=== PATIENT | male | born 1955 | race Caucasian/White ===

== ENCOUNTER 2016-12-16 12:48 | Emergency (ER) | payer MEDICAID ==
--- NOTE | 2016-12-16 13:29 | ED Physician Chart ---
Chief Complaint/HPI - Patient Information Date Seen:: 12/16/16 Time Seen:: 13:00 Chief Complaint:: Slight increase in tremor since this morning. History of Present Illness:: Pt came to ER by private auto for the above reason after he has been doing a lot of walking outside under hot weather. Pt has h/o Parkinson's Disease and has been compliant with his usual medical regimen. Pt also has diabetes mellitus but has not been monitoring his glucose at home. Pt states that he has been compliant with his diabetic medical therapy but not with his diabetic diet. Pt has ? low grade fever today. Pt denies polyuria. No dysuria, urgency or frequency. No cough. No chest pain or discomfort. Pt denies use of any antipyretic or analgesic today. Allergies:: Allergies Allergy/AdvReac Type Severity Reaction Status Date / Time No Known Allergies Allergy Verified 09/23/15 16:27 Vitals:: Vital Signs - 8 hr 12/16/16 12:58 Temp 97.3 F HR 110 RR 16 BP 148/102 O2 Sat % 98 Historian:: Patient Family MD/PCP:: Dr. Ruff LMP:: N/A Review:: Nurse's Note Reviewed Review of Systems - Review of Systems General/Constitutional: Fever (? low grade fever.), No chills, No weight loss, No weakness, No edema, No loss of appetite Skin: No skin lesions, No rash, No bruising Head: Headache (transient frontal headache.), No light-headedness Eyes: No loss of vision, No pain, No diplopia ENT: No earache, No nasal drainage, No sore throat, No tinnitus Neck: No neck pain, No swelling, No thyromegaly, No stiffness, No mass noted Cardio Vascular: No chest pain, No palpitations, No edema Pulmonary: No SOB, No cough, No wheezing GI: No nausea, No vomiting, No diarrhea, No pain G/U: No dysuria, No frequency, No hematuria Musculoskeletal: No bone or joint pain, No back pain, No muscle pain Endocrine: No polyuria Psychiatric: No prior psych history Hematopoietic: No bruising, No lymphadenopathy Allergic/Immuno: No urticaria, No angioedema Neurological: No syncope, No focal symptoms, No weakness, No paresthesia, No dizziness, No confusion Past Medical History - Past Medical History Past Medical History: DM, Other (DJD of C-spine and L-spine) Family History: Heart disease (mother), Diabetes Melitus (father), Cancer ( father) Social History: Smoker (1/2 ppd. Pt has been informed about health risks associated with chronic tobacco use and has been advised to quit. Pt has been encouraged to enroll in a smoking cessation program. Pt acknowledges understanding.), No Alcohol, No Drug Use, , Employed, Other (lives with his brother.) Employment:: [employer]. Surgical History: other (L knee surgery about a year ago.) Psychiatricy History: None Medication: Reviewed Family Medical History - Family Member Mother Ethnicity: Non- Living Status: Hx Family Cancer: Yes (Breast) Hx Family Coronary Artery Disease: No Hx Family Congestive Heart Failure: No Hx Family Hypertension: No Hx Family Stroke: No Hx Family Seizures: No Hx Family Dementia: No Hx Family HIV: No Hx Family Hepatitis: No Father Ethnicity: Non- Living Status: Hx Family Cancer: No Hx Family Coronary Artery Disease: No Hx Family Congestive Heart Failure: No Hx Family Hypertension: No Hx Family Stroke: No Hx Family Diabetes: No Hx Family Seizures: No Hx Family Dementia: No Hx Family AIDS: No Hx Family HIV: No Hx Family COPD: No Hx Family Hepatitis: No Hx Family Psychiatric Problems: No Hx Family Tuberculosis: No Physical Exam - Physical Examination General/Constitutional: Awake, Well-developed, well-nourished, Alert, No distress, GCS 15, Non-toxic appearing Other Gen/Cons comments:: Breathes comfortably, speaks clearly, and interacts normally. Head: Atraumatic Eyes: Lids, conjuctiva normal, PERRL, EOMI Skin: Nl inspection, No rash, No skin lesions, No ecchymosis, No lymphadenopathy ENMT: External ears, nose nl, TM canals nl, Nasal exam nl, Lips, teeth, gums nl , Oropharynx nl Other ENMT comments:: Mucous membrane is slightly dry. Neck: Nontender, Full ROM w/o pain, No JVD, No nuchal rigidity, No stridor Respiratory: Nl effort/Exclusion, Clear to Auscultation, No Wheeze/Rhonchi/Rales Cardio Vascular: RRR, No murmur, gallop, rubs GI: No tenderness/rebounding/guarding, No organomegaly, Normal BS's, Nondistended Other GI comments:: Abdomen is soft. : No CVA tenderness Extremities: No tenderness or effusion, Full ROM, normal strength in all extremities, No edema, Normal digits & nails Neuro/Psych: Alert/oriented (oriented x 3), DTR's symmetric, Normal sensory exam , Normal motor strength, Judgement/insight normal, Mood normal, Normal gait, No focal deficits Other Neuro/Psych comments:: CN II to XII are gross intact. Cerebellar exam (F to N, PETER): normal. No focal findings. Labs/Radiology/EKG Results - Lab Results Results: Laboratory Tests 12/16/16 13:16 POC Glucose 308 H Laboratory Tests 12/16/16 12/16/16 12/16/16 13:16 13:48 13:48 WBC 9.0 RBC 4.58 Hgb 13.6 Hct 40.5 MCV 88.4 MCH 29.7 MCHC Differential 33.6 RDW 14.4 Plt Count 281 MPV 8.5 Neutrophils % 72.5 Lymphocytes % 17.2 L Monocytes % 7.7 Eosinophils % 2.0 Basophils % 0.6 PT 9.6 INR 0.92 PTT (Actin FS) 23.5 L Sodium Potassium Chloride Carbon Dioxide Anion Gap BUN Creatinine Est GFR ( Amer) Est GFR (Non-Af Amer) BUN/Creatinine Ratio Glucose POC Glucose 308 H Calcium Total Bilirubin AST ALT Alkaline Phosphatase Creatine Kinase Troponin I Total Protein Albumin Globulin Albumin/Globulin Ratio Serum Ketones 12/16/16 12/16/16 13:48 13:48 WBC RBC Hgb Hct MCV MCH MCHC Differential RDW Plt Count MPV Neutrophils % Lymphocytes % Monocytes % Eosinophils % Basophils % PT INR PTT (Actin FS) Sodium 132 L Potassium 3.6 Chloride 106 Carbon Dioxide 20.7 L Anion Gap 8.9 BUN 20 Creatinine 1.0 Est GFR ( Amer) > 60.0 Est GFR (Non-Af Amer) > 60.0 BUN/Creatinine Ratio 20.0 Glucose 303 H POC Glucose Calcium 9.0 Total Bilirubin 0.3 AST 6 L ALT 8 Alkaline Phosphatase 82 Creatine Kinase 45 Troponin I 0.03 Total Protein 6.9 Albumin 4.2 Globulin 2.7 Albumin/Globulin Ratio 1.6 Serum Ketones NEGATIVE - Radiology Results Results: PCXR: Based on my interpretation, NAD. Official report is pending. - EKG Interpretations EKG Time:: 13:48 Rate & Rhythm: NSR with VR 93 Comments:: Cannot r/o old IMI, age undetermined. NSSTT changes. No acute ischemic changes. ED Septic Shock - . Is Septic Shock (SBP<90, OR Lactate>4 mmol\L) present?: No - <6hrs of presentation: Vital Signs: Vital Signs - 8 hr 12/16/16 12:58 Temp 97.3 F HR 110 RR 16 BP 148/102 O2 Sat % 98 Reassessment (Disposition) - Reassessment Reassessment:: 1517 Pt has been repeatedly evaluated. Pt feels better. EKG, CXR and lab findings have been reviewed with pt. Will continue to hydrate pt. Pt requests pain medication for his chronic left knee pain now. Toradol 30 mg IV is to be given. 1645 Pt feels well after IV hydration. He has been back to his baseline physical status without bodily pain or discomfort, and he has been ambulating without assistance without difficulty. Repeat Accuchek is 232. EKG, CXR, and lab findings have been reviewed with pt. Pt requests to go home now and does not want further observation/management in hospital. Aftercare instructions have been given. Reassessment Condition:: Improved - Diagnosis Diagnosis:: Dehydration because of exposure to hot weather, stable and resolved. Diabetes mellitus, suboptimally controlled due to noncompliance with diabetic diet, improved and stable. - Aftercare/Follow up Instructions Aftercare/Follow-Up Instructions:: Refer to Discharge Instructions Notes:: Continue present care. Pt has been reminded that he needs to monitoring his glucose at home. Diabetic diet instructions have been given to pt per nursing staff also. Stay indoor when outside temperature is high. Increase oral hydration. F/U with PCP Dr. Ruff in one day for recheck with repeat lab study: CMP. Return to ER immediately if condition worsens or if any further questions/ problems. Medication Prescribed:: None - Patient Disposition Discharge/Transfer:: Home Time:: 16:50 Condition at Disposition:: Stable, Improved ED Discharge Plan - Patient Disposition Instructions: Type 2 Diabetes Mellitus, Adult, Diabetes, Eating Away From Home , Diets for Diabetes, Food Labeling, Dehydration, Adult, Diabetes Meal Planning Guide
[2016-12-16 13:59] LABS: RED CELL DISTRIBUTION WIDTH 14.4 % (11.5-20.0)
[2016-12-16 14:05] LABS: % BASOPHILS 0.6 % (0.0-2.0); % LYMPHOCYTES 17.2 % (20.0-50.0); % MONOCYTES 7.7 % (2.0-10.0); % NEUTROPHILS 72.5 % (40.0-80.0); HEMATOCRIT 40.5 % (39.0-49.0); HEMOGLOBIN 13.6 gm/dL (13.2-17.3); MEAN CELL VOLUME 88.4 fl (80-99); MEAN CORPUSCULAR HEMOGLOBIN 29.7 pg (26.0-30.0); MEAN CORPUSCULAR HGB CONC 33.6 pg (28.0-36.0); MEAN PLATELET VOLUME 8.5 fl; NEUTROPHILE ABSOLUTE 6.5 Th/cmm (1.8-8.0); PLATELET COUNT 281 Th/cmm (150-400); RED BLOOD COUNT 4.58 Mil/cmm (4.30-5.70)
[2016-12-16] MEDS ORDERED: Sodium Chloride 0.9% 1,000 ML IV ONE (14:15)
[2016-12-16 14:17] LABS: ALB/GLOB RATIO 1.6 (1.0-1.8); ALKALINE PHOSPHATASE 82 U/L (34-104); ANION GAP 8.9 (7.0-16.0); BILIRUBIN,TOTAL 0.3 mg/dL (0.3-1.0); BUN - UREA NITROGEN 20 mg/dL (7-25); CARBON DIOXIDE 20.7 mEq/L (21.0-31.0); CHLORIDE 106 mEq/L (98-107); GLUCOSE 303 mg/dL (70-105); POTASSIUM SERUM 3.6 mEq/L (3.5-5.1); SGOT 6 U/L (13-39); SGPT/ALT 8 U/L (7-52); SODIUM SERUM 132 mEq/L (136-145)
[2016-12-16 14:22] LABS: INR 0.92 (0.5-1.4); PROTHROMBIN TIME (TEST) 9.6 SECONDS (9.5-11.5)
--- NOTE | 2016-12-17 08:09 | Diagnostic Imaging Report ---
Portable chest x-ray Time: 1356 hours History: Low-grade fever Allowing for portable technique the heart size is normal. No focal pulmonary parenchymal processes. No hilar or mediastinal abnormalities. Impression: No acute abnormalities.
== END 2016-12-16 16:51 | disposition home or self-care (01) ==
LOC: ER 12:48
DX: E11.9 Type 2 diabetes mellitus without complications (principal); F17.200 Nicotine dependence, unspecified, uncomplicated; G20 Parkinson's disease
CPT/HCPCS: 99285; 96361; 96374; 93005; 71010; 84484; 36415; 36416 ×2; 82948 ×2; 85025; 85610; 82550; 83036; 82010; 80053; J1885; J7030

== ENCOUNTER 2017-05-13 15:08 | Inpatient (IN) | payer MEDICAID ==
[2017-05-13] MEDS ORDERED: Aspirin 325 mg EC PO ONE (15:22)
--- NOTE | 2017-05-13 15:34 | ED Physician Chart ---
ED Chief Complaint/HPI - Patient Information Date Seen:: 05/13/17 Time Seen:: 15:15 Chief Complaint:: Chest Pain History of Present Illness:: onset since 10am today of intermittentk, exertional chest pain, dyspnea, diaphoresis; no LOC, H/As, S/T, neck pain, cough, Abd. Pain, A/N/V/D/C, fever, chills, or urinary s/s Allergies:: Allergies Allergy/AdvReac Type Severity Reaction Status Date / Time No Known Allergies Allergy Verified 09/23/15 16:27 Vitals:: Vital Signs - 8 hr 05/13/17 15:19 Temp 98.7 F HR 112 RR 18 BP 93/59 O2 Sat % 97 Historian:: Patient Review:: Nurse's Note Reviewed ED Review of Systems - Review of Systems General/Constitutional: No fever, No chills, No weight loss, No weakness, No diaphoresis, No edema, No loss of appetite Skin: No skin lesions, No rash, No bruising Head: No headache, No light-headedness Eyes: No loss of vision, No pain, No diplopia ENT: No earache, No nasal drainage, No sore throat, No tinnitus Neck: No neck pain, No swelling, No thyromegaly, No stiffness, No mass noted Cardio Vascular: Chest pain, No palpitations, No PND, No orthopnea, No edema Pulmonary: SOB, No cough, No sputum, No wheezing GI: No nausea, No vomiting, No diarrhea, No pain, No melena, No hematochezia, No constipation, No hematemesis G/U: No dysuria, No frequency, No hematuria, No nacturia Musculoskeletal: No bone or joint pain, No back pain, No muscle pain Endocrine: No polyuria, No polydipsia Psychiatric: No prior psych history, No depression, No anxiety, No suicidal ideation, No homicidal ideation, No auditory hallucination, No visual hallucination Hematopoietic: No bruising, No lymphadenopathy Allergic/Immuno: No urticaria, No angioedema Neurological: No syncope, No focal symptoms, No weakness, No paresthesia, No headache, No seizure, No dizziness, No confusion, No vertigo ED Past Medical History - Past Medical History Obtainable: Yes Past Medical History: HTN, DM, Other (Parkinson's Disease) Family History: Diabetes Melitus, HTN Social History: Non Smoker, No Alcohol, No Drug Use, Surgical History: other (Rotator Cuff Surgery) Psychiatricy History: None Medication: Reviewed Family Medical History - Family Member Mother History Unknown: Yes Ethnicity: Non- Living Status: Hx Family Cancer: Yes (Breast) Hx Family Coronary Artery Disease: No Hx Family Congestive Heart Failure: No Hx Family Hypertension: No Hx Family Stroke: No Hx Family Seizures: No Hx Family Dementia: No Hx Family HIV: No Hx Family Hepatitis: No Father History Unknown: Yes Ethnicity: Non- Living Status: Hx Family Cancer: No Hx Family Coronary Artery Disease: No Hx Family Congestive Heart Failure: No Hx Family Hypertension: No Hx Family Stroke: No Hx Family Diabetes: No Hx Family Seizures: No Hx Family Dementia: No Hx Family AIDS: No Hx Family HIV: No Hx Family COPD: No Hx Family Hepatitis: No Hx Family Psychiatric Problems: No Hx Family Tuberculosis: No ED Physical Exam - Physical Examination General/Constitutional: Awake, Well-developed, well-nourished, Alert, No distress, GCS 15, Non-toxic appearing, Ambulatory Head: Atraumatic Eyes: Lids, conjuctiva normal, PERRL, EOMI Skin: Nl inspection, No rash, No skin lesions, No ecchymosis, Well hydrated, No lymphadenopathy ENMT: External ears, nose nl, TM canals nl, Nasal exam nl, Lips, teeth, gums nl , Oropharynx nl, Tonsils nl Neck: Nontender, Full ROM w/o pain, No JVD, No nuchal rigidity, No bruit, No mass, No stridor Respiratory: Nl effort/Exclusion Other Respiratory comments:: Lungs: + Rales, Rhonchi, and Wheezes Cardio Vascular: RRR, No murmur, gallop, rubs, NL S1 S2, Carotid/Femoral/Distal pulses equal bilaterally GI: No tenderness/rebounding/guarding, No organomegaly, No hernia, Normal BS's, Nondistended, No mass/bruits, No McBurney tenderness : No CVA tenderness Extremities: No tenderness or effusion, Full ROM, normal strength in all extremities, No edema, Normal digits & nails Neuro/Psych: Alert/oriented, DTR's symmetric, Normal sensory exam, Normal motor strength, Judgement/insight normal, Mood normal, Normal gait, No focal deficits Misc: Normal back, No paraspinal tenderness ED Labs/Radiology/EKG Results - Lab Results Comments:: WBC: 11.5; Na+: 135; Glucose: 438 - Radiology Results Comments:: CXR: Patchy LLL Infiltrate - EKG Interpretations EKG Time:: 15:31 Rate & Rhythm: 105; ST/Atrial Flutter Comments:: old IWMI; non-specific st-t changes ED Septic Shock - . Is Septic Shock (SBP<90, OR Lactate>4 mmol\L) present?: No - <6hrs of presentation: Vital Signs: Vital Signs - 8 hr 05/13/17 15:19 Temp 98.7 F HR 112 RR 18 BP 93/59 O2 Sat % 97 ED Reassessment (Disposition) - Reassessment Reassessment Condition:: Improved - Diagnosis Diagnosis:: Dx: PNA; Chest Pain; Angina Pectoris; Atrial Flutter; Sepsis; Leukocytosis; Hyperglycemia; Hyponatremia; Dehydration; Uncontrolled Diabetes Mellitus; COPD; Cardiac Arrythmias - Aftercare/Follow up Instructions Aftercare/Follow-Up Instructions:: Counseled pt regarding lab results/diagnosis & need follow up, Counseled pt & family regarding lab results/diagnosis & need follow up - Patient Disposition Discharge/Transfer:: Acute Care w/in this hosp Accepting Physician:: Dr. Colin Time Called:: 1700 Time Responded:: 17:00 Admitted to:: Telemetry Spoke to:: Dr. colin Admitting Medical Physician:: Dr. Colin Condition at Disposition:: Stable, Improved
[2017-05-13 15:36] LABS: % EOSINOPHILS 1.3 % (0.0-5.0); % LYMPHOCYTES 9.8 % (20.0-50.0); % NEUTROPHILS 84.9 % (40.0-80.0); EOSINOPHILE ABSOLUTE 0.1 Th/cmm (0.1-0.4); HEMATOCRIT 38.6 % (41.0-60); HEMOGLOBIN 13.1 gm/dL (12-16); LYMPHOCYTE ABSOLUTE 1.1 Th/cmm (1.5-3.0); MEAN CELL VOLUME 89.2 fl (80-99); MEAN CORPUSCULAR HEMOGLOBIN 30.3 pg (26.0-30.0); MEAN CORPUSCULAR HGB CONC 33.9 pg (28.0-36.0); MEAN PLATELET VOLUME 8.8 fl; MONOCYTE ABSOLUTE 0.5 Th/cmm (0.3-1.0); NEUTROPHILE ABSOLUTE 9.8 Th/cmm (1.8-8.0); RED BLOOD COUNT 4.33 Mil/cmm (4.30-5.70); RED CELL DISTRIBUTION WIDTH 14.2 % (11.5-20.0)
[2017-05-13 15:37] LABS: WHITE BLOOD COUNT 11.5 Th/cmm (4.8-10.8)
[2017-05-13 15:38] LABS: PLATELET COUNT 358 Th/cmm (150-400)
[2017-05-13] MEDS ORDERED: Aspirin 81mg Chewable Tab ONE (15:40)
[2017-05-13] MEDS ORDERED: Aspirin 81mg Chewable Tab PO STA (15:43)
[2017-05-13] MEDS ORDERED: Morphine Sulfate 2 mg/mL 1mL Syr IV STA (16:04)
[2017-05-13 16:11] LABS: ALB/GLOB RATIO 1.6 (1.0-1.8); ALBUMIN 4.2 gm/dL (4.2-5.5); ALKALINE PHOSPHATASE 97 U/L (34-104); ANION GAP 15.4 (7.0-16.0); BILIRUBIN,TOTAL 0.3 mg/dL (0.3-1.0); BUN - UREA NITROGEN 22 mg/dL (7-25); CARBON DIOXIDE 18.2 mEq/L (21.0-31.0); CHLORIDE 106 mEq/L (98-107); CHOLESTEROL 184 mg/dL (<200); CREATININE - SERUM 1.1 mg/dL (0.7-1.3); CREATININE KINASE 45 U/L (30-223); GFR AFRICAN-AMERICAN > 60.0 ml/min (>90); GFR NON AFRICAN-AMERICAN > 60.0 ml/min; GLUCOSE 438 mg/dL (70-105); HDL -HIGH DENSITY LIPOPROTEIN 46 mg/dL (23-92); POTASSIUM SERUM 4.6 mEq/L (3.5-5.1); SGOT 6 U/L (13-39); SGPT/ALT 6 U/L (7-52); SODIUM SERUM 135 mEq/L (136-145); TOTAL PROTEIN,SERUM 6.8 gm/dL (6.0-8.3); TRIGLYCERIDES 280 mg/dL (<150)
[2017-05-13] MEDS ORDERED: Morphine Sulfate 2 mg/mL 1mL Syr ONE (16:27)
[2017-05-13] MEDS ORDERED: Albuterol/Ipratropium Neb 3 ML AERS HHN ONE ×2 (16:37→17:03)
[2017-05-13 16:38] LABS: INR 0.9 (0.5-1.4); PROTHROMBIN TIME (TEST) 9.3 SECONDS (9.5-11.5)
[2017-05-13] MEDS ORDERED: INSULIN HUMAN REGULAR 100 UNITS/ML UNIT SUBQ ONE (17:01)
[2017-05-13] MEDS ORDERED: Levofloxacin 500mg/100mL 500 MG/100 ML BAG IV ONE ×2 (17:02→17:36)
[2017-05-13] MEDS ORDERED: INSULIN HUMAN REGULAR 100 UNITS/ML UNIT ONE (17:10)
[2017-05-13] MEDS ORDERED: Sodium Chloride 0.9% 1,000 ML IV ONE (17:19)
[2017-05-13 17:39] LABS: URINE MICROSCOPIC INDICATED? YES; URINE SOURCE MIDSTREAM
[2017-05-13 17:41] LABS: URINE BILIRUBIN NEGATIVE (NEGATIVE); URINE BLOOD NEGATIVE (NEGATIVE); URINE GLUCOSE (UA) >=1000 mg/dL (NEGATIVE); URINE KETONE NEGATIVE (NEGATIVE); URINE LEUKOCYTE ESTERASE NEGATIVE (NEGATIVE); URINE NITRATE NEGATIVE (NEGATIVE); URINE PROTEIN NEGATIVE (NEGATIVE); URINE UROBILINOGEN 0.2 E.U./dL (0.2 - 1.0)
[2017-05-13 17:55] LABS: URINE BACTERIA NONE SEEN /hpf (NONE SEEN); URINE CLARITY CLEAR (CLEAR); URINE COLOR YELLOW; URINE EPITHELIAL CELLS NONE SEEN /lpf (FEW); URINE RBC NONE SEEN /hpf (0-5); URINE WBC NONE SEEN /hpf (0-5)
[2017-05-13] MEDS ORDERED: INSULIN ASPART, RECOMBINANT 100 UNITS/ML SUBQ ONE (20:15)
[2017-05-13] MEDS ORDERED: Azithromycin 500 MG in Sodium Chloride 0.9% 250 ML IV SCH (21:30)
[2017-05-13] MEDS: Morphine Sulfate 2 mg/mL 1mL Syr IVP PRN (22:36)
[2017-05-13] MEDS: Enoxaparin 80 mg/0.8 mL 0.8mL Syr SUBQ SCH (23:33)
[2017-05-14] MEDS: NITROGLYCERIN OINT 2% 1 INCH PACKET TP SCH ×4 (00:45→17:46)
[2017-05-14] MEDS: Morphine Sulfate 2 mg/mL 1mL Syr IVP PRN ×4 (02:57→20:30)
[2017-05-14 04:24] VITALS: BP 137/90
[2017-05-14 05:48] LABS: % BASOPHILS 0.5 % (0.0-2.0); % EOSINOPHILS 2.6 % (0.0-5.0); % LYMPHOCYTES 21.3 % (20.0-50.0); % MONOCYTES 8.1 % (2.0-10.0); % NEUTROPHILS 67.5 % (40.0-80.0); BASOPHILE ABSOLUTE 0.1 Th/cumm (0-0.2); EOSINOPHILE ABSOLUTE 0.3 Th/cmm (0.1-0.4); HEMATOCRIT 38.9 % (41.0-60); HEMOGLOBIN 12.8 gm/dL (12-16); LYMPHOCYTE ABSOLUTE 2.2 Th/cmm (1.5-3.0); MEAN CELL VOLUME 88.9 fl (80-99); MEAN CORPUSCULAR HEMOGLOBIN 29.4 pg (26.0-30.0); MEAN PLATELET VOLUME 8.4 fl; MONOCYTE ABSOLUTE 0.8 Th/cmm (0.3-1.0); NEUTROPHILE ABSOLUTE 6.9 Th/cmm (1.8-8.0); PLATELET COUNT 313 Th/cmm (150-400); RED BLOOD COUNT 4.37 Mil/cmm (4.30-5.70); RED CELL DISTRIBUTION WIDTH 14.3 % (11.5-20.0); WHITE BLOOD COUNT 10.3 Th/cmm (4.8-10.8)
[2017-05-14 06:03] LABS: ALB/GLOB RATIO 1.6 (1.0-1.8); ALBUMIN 4.2 gm/dL (4.2-5.5); ALKALINE PHOSPHATASE 76 U/L (34-104); ANION GAP 11.8 (7.0-16.0); BILIRUBIN,TOTAL 0.3 mg/dL (0.3-1.0); BUN - UREA NITROGEN 16 mg/dL (7-25); CALCIUM SERUM 9.4 mg/dL (8.6-10.3); CARBON DIOXIDE 20.5 mEq/L (21.0-31.0); CHLORIDE 107 mEq/L (98-107); GFR AFRICAN-AMERICAN > 60.0 ml/min (>90); GFR NON AFRICAN-AMERICAN > 60.0 ml/min; MAGNESIUM 1.6 mg/dL (1.9-2.7); POTASSIUM SERUM 4.3 mEq/L (3.5-5.1); SGOT 7 U/L (13-39); SGPT/ALT 9 U/L (7-52); SODIUM SERUM 135 mEq/L (136-145); TOTAL PROTEIN,SERUM 6.9 gm/dL (6.0-8.3)
[2017-05-14 06:10] LABS: GLUCOSE 219 mg/dL (70-105)
--- NOTE | 2017-05-14 08:20 | Diagnostic Imaging Report ---
CHEST X-RAY: AP view INDICATION: pain COMPARISON: 12/16/2016 FINDINGS: Chronic lung changes are noted with no focal consolidation or pleural effusions. Heart size is borderline prominent. Degenerative changes of the spine are noted. IMPRESSION: Chronic interstitial lung changes with no focal consolidation identified.
[2017-05-14] MEDS: Aspirin 81mg Chewable Tab PO SCH (09:11)
[2017-05-14] MEDS: Enoxaparin 80 mg/0.8 mL 0.8mL Syr SUBQ SCH ×2 (09:11→20:31)
[2017-05-14] MEDS: Atorvastatin Calcium 10 MG TAB PO SCH (09:11)
[2017-05-14] MEDS: Pantoprazole 40 mg EC Tab PO SCH (09:26)
--- NOTE | 2017-05-14 11:43 | History & Physical ---
ADMIT DATE: 05/14/2017 DATE OF EVALUATION: 05/14/2017. CHIEF COMPLAINT: Chest pain. HISTORY OF PRESENT ILLNESS: A 61-year-old male with history of type 2 diabetes, hypertension, hyperlipidemia, history of Parkinson disease, has a longstanding history of smoking, brought himself to the Emergency Room for evaluation of chest pain on and off for last 4-5 days. According to him, when he gets stressed out, he gets chest pain, which has been described in the left precordial area associated with shortness of breath and palpitation and diaphoresis, according to him sometimes pain goes to the lower part of the abdomen. The patient was evaluated by Emergency Room MD. After being evaluated, the patient is advised to be admitted to the hospital for further treatment. PAST MEDICAL HISTORY: Remarkable for; 1. Diabetes. 2. Hypertension. 3. Hyperlipidemia. 4. DJD. 5. Parkinson's disease. MEDICATIONS: Medication list has been reviewed and reconciled appropriately. ALLERGIES: The patient is not allergic to any medication. SOCIAL HISTORY: The patient lives with his brother in [facility]. The patient has a history of smoking cigarette. No alcohol or drug use. FAMILY HISTORY: Remarkable for diabetes. REVIEW OF SYSTEMS: The patient currently denies any headache, blurred vision, double vision, dysphagia, odynophagia, runny nose, stuffy nose, fever, or chills. The patient denies any abdominal pain. Denies any nausea, vomiting, hematemesis, hematuria, hematochezia, or melena. No seizure or syncopal episode. PHYSICAL EXAMINATION: GENERAL: The patient is alert, awake, and oriented, lying in the bed. VITAL SIGNS: Temperature 97.7, pulse is 69, respiratory rate is 18, and blood pressure 140/84. HEENT: Normocephalic and atraumatic. Extraocular muscles are intact. Tongue was pink and coated. Poor dentition noted. NECK: Supple. No JVD. No hepatojugular reflex. No lymphadenopathy, thyromegaly, or carotid bruit. HEART: Both heart sounds are regular. No S3, no S4, no murmur. CHEST: Lung equal in expansion with expiratory wheezing. ABDOMEN: Soft. No guarding, no rigidity. Liver and spleen not palpable. No palpable mass. EXTREMITIES: No edema, no cyanosis or clubbing. Peripheral pulses are +2. No calf tenderness noted. NEUROLOGICAL: ____ resting tremors noted with some degree of spasticity. AVAILABLE DIAGNOSTIC DATA: Performed in the Emergency Room. Laboratory data has been reviewed. CLINICAL IMPRESSION: 1. Acute coronary syndrome. 2. Chronic bronchitis. 3. Diabetes. 4. Hypertension. 5. Hyperlipidemia. 6. Parkinson's disease. 7. Degenerative joint disease. 8. Fall risk. PLAN: 1. Admit this patient to telemetry unit, provide oxygen. 2. Aspirin. 3. Nitrates. 4. Beta fiona. 5. Wtj-nadaizwdw-niuflv heparin. 6. Cardiology consultation. 7. Statins. 8. Obtain 3 sets of cardiac enzymes and EKG. 9. Symptoms management. 10. Diabetes management. 11. Appropriate home medicine reconciliation. 12. Nebulizer treatment. 13. ID consult will be requested because I was told the patient had pneumonia. 14. Fall precaution. 15. General nursing care. 16. Care plan reviewed and discussed with staff. JOB# [id number]
[2017-05-14] MEDS: Albuterol/Ipratropium Neb 3 ML AERS HHN SCH ×2 (13:52→20:28)
[2017-05-14] MEDS: INSULIN ASPART SLIDING SCALE 100 UNITS/ML UNIT SUBQ SCH ×2 (16:33→20:33)
[2017-05-14] MEDS ORDERED: Hydrocodone/APAP 5mg/325mg Tab PO PRN (23:39)
[2017-05-15] MEDS: Albuterol/Ipratropium Neb 3 ML AERS HHN SCH ×2 (00:38→07:49)
[2017-05-15] MEDS: NITROGLYCERIN OINT 2% 1 INCH PACKET TP SCH ×2 (00:51→05:58)
--- NOTE | 2017-05-15 03:48 | Consultation ---
DATE OF CONSULTATION: 05/14/2017 REFERRING PHYSICIAN: Dr. Han Colin. REASON FOR CONSULTATION: Pneumonia. HISTORY OF PRESENT ILLNESS: The patient is a 61-year-old male with a past medical history of diabetes mellitus type 2, hypertension, hyperlipidemia, DJD, Parkinson disease, brought to the ER for left precordial chest pain. The patient has taken multiple doses of nitroglycerin. As there was no relief, he came to the ER for further evaluation and management. On initial evaluation, the patient's temperature was 98.7 degrees Fahrenheit and WBC count 11,558. The patient was suspected to have UTI. The patient's chest x-ray suspected of pneumonia, so ID consult was called for further antibiotic management and the patient had received Zithromax. PAST MEDICAL HISTORY: Includes diabetes mellitus type 2, hypertension, hyperlipidemia, DJD, and Parkinson disease. MEDICATIONS: As per medication reconciliation sheet. ALLERGIES: NKDA. SOCIAL HISTORY: The patient lives with his brother in [facility]. He also carries a history of smoking. No alcohol use. FAMILY HISTORY: Unremarkable. REVIEW OF SYSTEMS: The patient is unreliable. GENERAL: The patient denies any fever or chills. He denies any dizziness. HEENT: The patient denies any diplopia, photophobia, sore throat, or condition. RESPIRATORY: The patient denies any cough or shortness of breath. CARDIOVASCULAR: No chest pain or palpitation. GASTROINTESTINAL: The patient denies any nausea, vomiting, diarrhea, or constipation. GENITOURINARY: No dysuria. Thank you, Dr. Colin for involving me in taking care of this patient. JOB# [id number]
--- NOTE | 2017-05-15 04:55 | Consultation ---
DATE OF CONSULTATION: 05/14/2017 INFECTIOUS DISEASE CONSULTATION NOTE REFERRING PHYSICIAN: Dr. Han Colin. REASON FOR CONSULTATION: Pneumonia. HISTORY OF PRESENT ILLNESS: The patient is a 61-year-old with a past medical history of diabetes mellitus type 2, hypertension, hyperlipidemia, DJD, Parkinson disease, brought in from care facility for precordial chest pain, not relieved by nitroglycerin alone. The patient was suspected to have pneumonia and Zithromax given. Chest x-ray did not show any evidence of any pneumonia. PAST MEDICAL HISTORY: Includes diabetes mellitus, hypertension, hyperlipidemia, DJD, Parkinson disease. MEDICATIONS: As per medication reconciliation sheet. Antibiotic thomas, the patient is receiving Zithromax. ALLERGIES: NKDA. SOCIAL HISTORY: The patient lives with his brother and granddaughter. Has history of smoking cigarettes. Denies alcohol use. FAMILY HISTORY: Diabetes mellitus type 2. REVIEW OF SYSTEMS: GENERAL: The patient denies any fever or chills. HEENT: No diplopia, no photophobia, no sore throat. Complains of precordial chest pain. GASTROINTESTINAL: No nausea, no vomiting, no diarrhea, no constipation. GENITOURINARY: No dysuria. NEUROLOGIC: No headache, no dizziness. No focal weakness. ____ urine culture is sent, result is pending. PHYSICAL EXAMINATION: VITAL SIGNS: Current vital signs show temperature is 98.7, pulse 94, respirations 19, blood pressure 111/76. GENERAL: The patient is comfortable, lying in the bed. HEENT: Head is normocephalic, atraumatic. Oral cavity moist, pink tongue. NECK: Supple. No JVD. Trachea in midline. CHEST: Bilateral breath sounds. No crackles or wheezing. CARDIOVASCULAR: S1, S2 within normal limits. Regular rhythm. No murmur, no gallop. ABDOMEN: Soft, nontender, nondistended. Bowel sounds present. EXTREMITIES: No cyanosis, no clubbing, no edema. NEUROLOGIC: Alert, awake. LABORATORY DATA: Current labs shows WBC count 10,300, it was 11,500 on presentation; hemoglobin 12.8; hematocrit 38.9; platelets are 313,000; neutrophils 67.5%. Sodium 135, potassium 4.3, chloride 107, bicarb is 20.5, BUN is 16, creatinine is 1 and LFTs are reviewed. IMAGING: Chest x-ray showed chronic changes, no acute disease. IMPRESSION: 1. Bronchitis. 2. Chest pain, rule out acute coronary syndrome. 3. Diabetes mellitus type 2. 4. Hypertension. 5. Hyperlipidemia. 6. Parkinson disease. 7. Degenerative joint disease. 8. Risk of fall. RECOMMENDATION: Give symptomatic treatment. JOB# [id number]
[2017-05-15 05:19] LABS: % BASOPHILS 0.4 % (0.0-2.0); % EOSINOPHILS 2.3 % (0.0-5.0); % MONOCYTES 6.9 % (2.0-10.0); % NEUTROPHILS 69.4 % (40.0-80.0); EOSINOPHILE ABSOLUTE 0.2 Th/cmm (0.1-0.4); HEMATOCRIT 38.9 % (41.0-60); HEMOGLOBIN 12.9 gm/dL (12-16); LYMPHOCYTE ABSOLUTE 2.1 Th/cmm (1.5-3.0); MEAN CORPUSCULAR HEMOGLOBIN 29.2 pg (26.0-30.0); MEAN CORPUSCULAR HGB CONC 33.2 pg (28.0-36.0); MEAN PLATELET VOLUME 8.2 fl; MONOCYTE ABSOLUTE 0.7 Th/cmm (0.3-1.0); NEUTROPHILE ABSOLUTE 7.1 Th/cmm (1.8-8.0); PLATELET COUNT 330 Th/cmm (150-400); RED BLOOD COUNT 4.42 Mil/cmm (4.30-5.70); RED CELL DISTRIBUTION WIDTH 14.3 % (11.5-20.0); WHITE BLOOD COUNT 10.1 Th/cmm (4.8-10.8)
[2017-05-15 05:34] LABS: ALB/GLOB RATIO 1.6 (1.0-1.8); ALBUMIN 4.4 gm/dL (4.2-5.5); ALKALINE PHOSPHATASE 73 U/L (34-104); BILIRUBIN,TOTAL 0.4 mg/dL (0.3-1.0); BUN - UREA NITROGEN 24 mg/dL (7-25); CALCIUM SERUM 9.6 mg/dL (8.6-10.3); CARBON DIOXIDE 23.1 mEq/L (21.0-31.0); CHLORIDE 103 mEq/L (98-107); CREATININE - SERUM 1.1 mg/dL (0.7-1.3); GFR AFRICAN-AMERICAN > 60.0 ml/min (>90); GFR NON AFRICAN-AMERICAN > 60.0 ml/min; POTASSIUM SERUM 4.1 mEq/L (3.5-5.1); SGOT 8 U/L (13-39); SGPT/ALT 3 U/L (7-52); SODIUM SERUM 134 mEq/L (136-145); TOTAL PROTEIN,SERUM 7.1 gm/dL (6.0-8.3)
[2017-05-15 05:40] LABS: GLUCOSE 133 mg/dL (70-105)
--- NOTE | 2017-05-15 05:59 | Consultation ---
DATE OF CONSULTATION: 05/14/[address] Colin. HISTORY AND PHYSICAL: This 61-year-old male patient with a known history of diabetes, hypertension, hyperlipidemia, Parkinson's disease, came to the Emergency Room with chest pain radiating to the back, to the left shoulder, sharp in nature. No PND or orthopnea. No palpitation. PAST MEDICAL HISTORY: Hypertension, diabetes, hyperlipidemia, COPD, Parkinson's disease, and nicotine dependence. FAMILY HISTORY: Unremarkable. SOCIAL HISTORY: The patient has a history of smoking. No history of alcohol abuse. ALLERGIES: None. PHYSICAL EXAMINATION: VITAL SIGNS: Blood pressure 130/80, pulse 70, and respirations 20. HEAD: Normocephalic. No lumps or bumps. EYES: Pupils equal and reactive to light. Fundi show AV nicking, sclerae white, conjunctivae pink. NECK: Carotid 2+. Normal upstroke. JVD flat. Thyroid not palpable. Lymph nodes not palpable. CHEST: Shows increased AP diameter. No kyphosis or scoliosis. LUNGS: Bilateral bronchovesicular breath sounds. Occasional wheeze. No rales. HEART: PMI fifth intercostal space with lateral to midclavicular line. S1 and S2. No S3 and S4. ABDOMEN: Soft. Liver and spleen not palpable. No organomegaly. Bowel sounds active. NEUROLOGIC EXAMINATION: Unremarkable. EXTREMITIES: Peripheral pulses 2+. No pedal edema. CLINICAL IMPRESSION: Chest pain, rule out coronary artery disease; hypertension, diabetes mellitus type 2, hyperlipidemia, chronic obstructive pulmonary disease, nicotine dependence, and Parkinson's disease. PLAN: We will get echocardiogram, troponin level, and monitor the patient on telemetry bed. JOB# [id number]
[2017-05-15] MEDS: INSULIN ASPART SLIDING SCALE 100 UNITS/ML UNIT SUBQ SCH ×2 (07:25→12:07)
[2017-05-15] MEDS: Atorvastatin Calcium 10 MG TAB PO SCH (09:10)
[2017-05-15] MEDS: Aspirin 81mg Chewable Tab PO SCH (09:11)
[2017-05-15] MEDS: Pantoprazole 40 mg EC Tab PO SCH (09:11)
[2017-05-15 16:22] LABS: A1C % 10.1 % (4.0-6.0)
--- NOTE | 2017-05-15 17:29 | Cardiology ---
05/15/2017 PROCEDURE: Echocardiogram. The patient of Dr. Colin. M-MODE ECHOCARDIOGRAM: Mitral valve, anterior leaflet of mitral valve shows decreased excursion, EF velocity. Posterior leaflet of mitral valve shows decreased excursion. Left ventricular posterior wall shows increased thickness, decreased excursion. Interventricular septum shows increased thickness, decreased excursion, ejection fraction 25%. Left atrium normal. Aortic root shows normal dimension, normal excursion of aortic leaflets. CONCLUSION: Cardiomyopathy, ejection fraction 25%. 2D ECHO: Long axis view shows enlarged left ventricular cavity with decreased ejection fraction. Mitral valve shows decreased excursion. Left atrium normal. Aortic root shows normal dimension, normal excursion of aortic leaflets. Short axis view of mitral valve normal. Short axis view of aortic valve normal. Apical four chamber view shows enlarged left ventricular cavity with decreased ejection fraction. Left atrium normal, right ventricular cavity, right atrium normal, no pericardial effusion. CONCLUSION: Cardiomyopathy, ejection fraction 25%. Doppler study showed trace mitral regurgitation, trace tricuspid regurgitation. [facility]# [id number]
--- NOTE | 2017-05-16 13:08 | Discharge Summary ---
DATE OF DISCHARGE: 05/15/2017 DISCHARGE DIAGNOSES: 1. Atypical chest pain. 2. Asthmatic bronchitis with bronchospasm. 3. Diabetes mellitus. 4. Hypertension. 5. Hyperlipidemia. 6. Parkinson's disease. 7. Degenerative joint disease. 8. Fall risk. BRIEF STATEMENT FOR THE REASON FOR ADMISSION: A 61-year-old male with significant cardiovascular risk factor, presented to Emergency Room where the patient was evaluated and subsequently admitted to the hospital for further treatment. Please refer to my dictated H and P for further information. HOSPITAL COURSE: The patient was admitted to telemetry unit. Initial impression was acute coronary syndrome. So, the patient was given oxygen, aspirin, beta fiona, nitrates along with bvi-anwuswwso-lektvy heparin, statin was also given. Cardiology consultation requested. Three sets of cardiac enzymes and EKG were done, which were negative for acute myocardial infarction. The patient did have 2D echocardiogram, which did not reveal any wall motion abnormality. The patient did see Infectious Disease doctor since I was told that the patient has pneumonia. Blood cultures were done, which was unremarkable as well. A chest x-ray done in the Emergency Room was negative for any acute cardiopulmonary disease. The patient was treated with bronchitis with bronchospasm, where the patient significantly improved. I did have a discussion with the patient to have the patient must follow with isobutylene operator chief and have further cardiac workup done as an outpatient in the form of Cardiolite stress test since the Cardiolite stress test facility is not available at this hospital. The patient has agreed upon and the patient will follow up with primary care physician. The patient's case investigator from his health plan did call me and I advised that the patient will require home health visiting nurse for medication compliance, home safety as well, which will be arranged by his insurance. Based on that, the patient is discharged home today with naproxen to be taken for pain. The patient will take Zithromax 500 mg daily for 5 days along with Ventolin inhaler 2 puffs 4 times a day. The patient will be receiving another medication as the patient will be receiving at home except the patient will discontinue Lopid and keep simvastatin as prescribed and benazepril only once a day and add a prescription of Coreg 3.125 mg b.i.d. has been added. The patient will be seen by isobutylene operator chief in 1 week. If recurrent symptoms, the patient will go to Emergency Room. [facility]# [id number]
== END 2017-05-15 13:20 | disposition home health service (06) | DRG 720 ==
LOC: ER 15:08 → TELE 19:04
PROVIDERS: ADMIT Internal Medicine; ATTEND Internal Medicine
DX: A41.9 Sepsis, unspecified organism (principal); G20 Parkinson's disease; I24.9 Acute ischemic heart disease, unspecified; E11.65 Type 2 diabetes mellitus with hyperglycemia; E87.1 Hypo-osmolality and hyponatremia; I48.92 Unspecified atrial flutter; E86.0 Dehydration; I10 Essential (primary) hypertension; E78.5 Hyperlipidemia, unspecified; M19.90 Unspecified osteoarthritis, unspecified site; F17.210 Nicotine dependence, cigarettes, uncomplicated; I25.10 Atherosclerotic heart disease of native coronary artery without angina pectoris; J44.9 Chronic obstructive pulmonary disease, unspecified; R07.89 Other chest pain; J98.01 Acute bronchospasm; Z91.81 History of falling; Z83.3 Family history of diabetes mellitus; Z82.49 Family history of ischemic heart disease and other diseases of the circulatory system
CPT/HCPCS: 36415-UA; 71045-TC; 80053-TC; 80061-TC; 81001-TC; 82550-TC; 82948-90; 83036-90; 83605; 83735-TC; 83880-TC; 84484-TC; 85025-TC; 85610-TC; 93005; 94640; 94760; 96375; J0456; J1650; J1815; J1956; J2270; J7030; J7040; Z7610

== ENCOUNTER 2017-05-17 22:35 | Emergency (ER) | payer MEDICAID ==
[2017-05-17 23:35] LABS: EOSINOPHILE ABSOLUTE 0.2 Th/cmm (0.1-0.4); HEMATOCRIT 39.1 % (41.0-60); HEMOGLOBIN 13.2 gm/dL (12-16); LYMPHOCYTE ABSOLUTE 1.1 Th/cmm (1.5-3.0); MEAN CELL VOLUME 87.9 fl (80-99); MEAN CORPUSCULAR HEMOGLOBIN 29.6 pg (26.0-30.0); MEAN CORPUSCULAR HGB CONC 33.7 pg (28.0-36.0); MEAN PLATELET VOLUME 8.7 fl; MONOCYTE ABSOLUTE 1.1 Th/cmm (0.3-1.0); NEUTROPHILE ABSOLUTE 13.8 Th/cmm (1.8-8.0); PLATELET COUNT 360 Th/cmm (150-400); RED BLOOD COUNT 4.45 Mil/cmm (4.30-5.70); RED CELL DISTRIBUTION WIDTH 14.5 % (11.5-20.0)
--- NOTE | 2017-05-17 23:42 | ED Physician Chart ---
ED Chief Complaint/HPI - Patient Information Date Seen:: 05/17/17 Time Seen:: 23:00 Chief Complaint:: Right chest pain and RUQ abdominal pain History of Present Illness:: 61 yo male was discharged from hospital 2 days ago due to bronchitis and was found to have cardiomyopathy with EF 25%. He then developed right side chest pain for 1 day and was brought back to ER by his friend. At ER, he was found to have elevated WBC at 16.2 and rocephin was given. Subsequently, the patient complained RUQ abdominal pain. Allergies:: Allergies Allergy/AdvReac Type Severity Reaction Status Date / Time No Known Allergies Allergy Verified 05/17/17 22:47 Vitals:: Vital Signs - 8 hr 05/17/17 22:53 Temp 97.6 F HR 104 RR 20 BP 94/58 O2 Sat % 98 <Zackery Gordon - Last Filed: 05/18/17 07:30> - Patient Information Allergies:: Allergies Allergy/AdvReac Type Severity Reaction Status Date / Time No Known Allergies Allergy Verified 05/17/17 22:47 <Julio C Mccall - Last Filed: 05/18/17 10:09> ED Review of Systems - Review of Systems General/Constitutional: No fever Skin: No skin lesions Head: No headache Eyes: No loss of vision ENT: No earache Neck: No neck pain Cardio Vascular: Chest pain, No edema Pulmonary: No SOB GI: No nausea, No vomiting, Pain Musculoskeletal: No bone or joint pain <Zackery Gordon - Last Filed: 05/18/17 07:30> ED Past Medical History - Past Medical History Past Medical History: HTN, DM, CHF (cardiomyopathy), Dyslipidemia ( hyperlipidemia), Other (Parkinson's disease, DJD) Social History: Smoker, No Alcohol, No Drug Use <Zackery Gordon Last Filed: 05/18/17 07:30> Family Medical History - Family Member Mother History Unknown: Yes Ethnicity: Non- Living Status: Hx Family Cancer: Yes (Breast) Hx Family Coronary Artery Disease: No Hx Family Congestive Heart Failure: No Hx Family Hypertension: No Hx Family Stroke: No Hx Family Seizures: No Hx Family Dementia: No Hx Family HIV: No Hx Family Hepatitis: No Father History Unknown: Yes Ethnicity: Non- Living Status: Hx Family Cancer: No Hx Family Coronary Artery Disease: No Hx Family Congestive Heart Failure: No Hx Family Hypertension: Yes Hx Family Stroke: No Hx Family Diabetes: Yes Hx Family Seizures: No Hx Family Dementia: No Hx Family AIDS: No Hx Family HIV: No Hx Family COPD: No Hx Family Hepatitis: No Hx Family Psychiatric Problems: No Hx Family Tuberculosis: No <HeidiKrishna Filed: 05/18/17 07:30> ED Physical Exam - Physical Examination General/Constitutional: Awake, Alert Head: Atraumatic Eyes: PERRL Skin: No skin lesions ENMT: Nasal exam nl Neck: No nuchal rigidity Other Respiratory comments:: mild ronchi bilateral lungs Cardio Vascular: No murmur, gallop, rubs, NL S1 S2 Other GI comments:: RUQ tenderness Extremities: normal strength in all extremities Neuro/Psych: No focal deficits <Krishna Gordon Filed: 05/18/17 07:30> ED Labs/Radiology/EKG Results - Radiology Results Results: CXR: increased lung markings, no consolidation <Heidi Filed: 05/18/17 07:30> - Lab Results Results: Laboratory Tests 05/17/17 05/17/17 05/17/17 23:17 23:17 23:17 WBC 16.2 H D RBC 4.45 Hgb 13.2 Hct 39.1 L MCV 87.9 MCH 29.6 MCHC Differential 33.7 RDW 14.5 Plt Count 360 MPV 8.7 Neutrophils % REPRODUCTIVE HEALTHCARE ASSISTANT Band Neutrophils % 2 Lymphocytes % REPRODUCTIVE HEALTHCARE ASSISTANT Monocytes % REPRODUCTIVE HEALTHCARE ASSISTANT Eosinophils % REPRODUCTIVE HEALTHCARE ASSISTANT Basophils % REPRODUCTIVE HEALTHCARE ASSISTANT Neutrophils (Manual) 83 H Lymphocytes 8 L Monocytes 5 Eosinophils 2 Hypochromia 1+ Platelet Estimate ADEQUATE Microcytosis 1+ Sodium 134 L Potassium 4.2 Chloride 106 Carbon Dioxide 17.4 L Anion Gap 14.8 BUN 31 H Creatinine 1.5 H Est GFR ( Amer) > 60.0 Est GFR (Non-Af Amer) 50.4 BUN/Creatinine Ratio 20.7 Glucose 228 H Whole Bld Lactic Acid Calcium 9.3 Total Bilirubin 0.3 AST 6 L ALT < 3 L Alkaline Phosphatase 68 Troponin I 0.01 B-Natriuretic Peptide Total Protein 6.9 Albumin 4.0 L Globulin 2.9 Albumin/Globulin Ratio 1.4 Urine Source Urine Color Urine Clarity Urine pH Ur Specific Harris Urine Protein Urine Glucose (UA) Urine Ketones Urine Blood Urine Nitrate Urine Bilirubin Urine Urobilinogen Ur Leukocyte Esterase Urine RBC Urine WBC Ur Epithelial Cells Urine Bacteria 05/17/17 05/18/17 05/18/17 23:17 01:20 07:21 WBC 14.8 H RBC 4.19 L Hgb 12.3 Hct 37.0 L MCV 88.4 MCH 29.3 MCHC Differential 33.2 RDW 14.3 Plt Count 308 MPV 8.4 Neutrophils % 85.6 H Band Neutrophils % Lymphocytes % 6.1 L Monocytes % 7.1 Eosinophils % 1.0 Basophils % 0.2 Neutrophils (Manual) Lymphocytes Monocytes Eosinophils Hypochromia Platelet Estimate Microcytosis Sodium Potassium Chloride Carbon Dioxide Anion Gap BUN Creatinine Est GFR ( Amer) Est GFR (Non-Af Amer) BUN/Creatinine Ratio Glucose Whole Bld Lactic Acid 1.18 Calcium Total Bilirubin AST ALT Alkaline Phosphatase Troponin I B-Natriuretic Peptide Total Protein Albumin Globulin Albumin/Globulin Ratio Urine Source RANDOM Urine Color YELLOW Urine Clarity CLEAR Urine pH 5.5 Ur Specific Harris 1.010 Urine Protein NEGATIVE Urine Glucose (UA) >=1000 H Urine Ketones NEGATIVE Urine Blood NEGATIVE Urine Nitrate NEGATIVE Urine Bilirubin NEGATIVE Urine Urobilinogen 0.2 Ur Leukocyte Esterase NEGATIVE Urine RBC 2-5 H Urine WBC 0-2 Ur Epithelial Cells OCCASIONAL Urine Bacteria FEW 05/18/17 05/18/17 05/18/17 07:21 07:21 07:21 WBC RBC Hgb Hct MCV MCH MCHC Differential RDW Plt Count MPV Neutrophils % Band Neutrophils % Lymphocytes % Monocytes % Eosinophils % Basophils % Neutrophils (Manual) Lymphocytes Monocytes Eosinophils Hypochromia Platelet Estimate Microcytosis Sodium 136 Potassium 4.2 Chloride 108 H Carbon Dioxide 20.0 L Anion Gap 12.2 BUN 29 H Creatinine 1.3 Est GFR ( Amer) > 60.0 Est GFR (Non-Af Amer) 59.5 BUN/Creatinine Ratio 22.3 Glucose 217 H Whole Bld Lactic Acid 0.74 Calcium 9.2 Total Bilirubin AST ALT Alkaline Phosphatase Troponin I B-Natriuretic Peptide 136.0 H Total Protein Albumin Globulin Albumin/Globulin Ratio Urine Source Urine Color Urine Clarity Urine pH Ur Specific Harris Urine Protein Urine Glucose (UA) Urine Ketones Urine Blood Urine Nitrate Urine Bilirubin Urine Urobilinogen Ur Leukocyte Esterase Urine RBC Urine WBC Ur Epithelial Cells Urine Bacteria 05/18/17 07:21 WBC RBC Hgb Hct MCV MCH MCHC Differential RDW Plt Count MPV Neutrophils % Band Neutrophils % Lymphocytes % Monocytes % Eosinophils % Basophils % Neutrophils (Manual) Lymphocytes Monocytes Eosinophils Hypochromia Platelet Estimate Microcytosis Sodium Potassium Chloride Carbon Dioxide Anion Gap BUN Creatinine Est GFR ( Amer) Est GFR (Non-Af Amer) BUN/Creatinine Ratio Glucose Whole Bld Lactic Acid Calcium Total Bilirubin AST ALT Alkaline Phosphatase Troponin I 0.01 B-Natriuretic Peptide Total Protein Albumin Globulin Albumin/Globulin Ratio Urine Source Urine Color Urine Clarity Urine pH Ur Specific Harris Urine Protein Urine Glucose (UA) Urine Ketones Urine Blood Urine Nitrate Urine Bilirubin Urine Urobilinogen Ur Leukocyte Esterase Urine RBC Urine WBC Ur Epithelial Cells Urine Bacteria <Julio C Mccall - Last Filed: 05/18/17 10:09> ED Assessment - Assessment General Assessment: Bronchitis Leukocytosis Abdominal pain Assessment/Comments:: CBC, CMP, UA CXR Rocephin NS 1L IV bolus CT abdomen <Zackery Gordon - Last Filed: 05/18/17 07:30> - Assessment General Assessment: DR. CREWS WAS CALLED AND HE STATES THAT HE KNOWS THIS MAN AND HE IS HOMELESS TRYING TO GET INTO THE HOSPITAL. HE WANTS HIM TO BE SENT HOME ON ANTIBIOTICS AND FOLLOW OUT PATIENT. <Julio C Mccall - Last Filed: 05/18/17 10:09> ED Septic Shock - . Is Septic Shock (SBP<90, OR Lactate>4 mmol\L) present?: No - <6hrs of presentation: Vital Signs: Vital Signs - 8 hr 05/17/17 22:53 Temp 97.6 F HR 104 RR 20 BP 94/58 O2 Sat % 98 <Zackery Gordon - Last Filed: 05/18/17 07:30> - . Is Septic Shock (SBP<90, OR Lactate>4 mmol\L) present?: No <Julio C Mccall - Last Filed: 05/18/17 10:09> ED Reassessment (Disposition) - Reassessment Reassessment Condition:: Improved - Diagnosis Diagnosis:: ACUTE BRONCHITIS - Aftercare/Follow up Instructions Aftercare/Follow-Up Instructions:: Counseled pt regarding lab results/diagnosis & need follow up, Refer to Discharge Instructions, Counseled pt & family regarding lab results/diagnosis & need follow up - Patient Disposition Discharge/Transfer:: Home Condition at Disposition:: Improved <Julio C Mccall - Last Filed: 02/03/18 10:09> ED Discharge Plan <Zackery Gordon - Last Filed: 05/18/17 07:30> <Julio C Mccall - Last Filed: 05/18/17 10:09> - Patient Disposition Admit/Discharge/Transfer: PT DISCHARGED HOME Condition at Disposition: Improved
[2017-05-17 23:45] LABS: WHITE BLOOD COUNT 16.2 Th/cmm (4.8-10.8)
[2017-05-18] MEDS ORDERED: cefTRIAXone 1 GM in Sodium Chloride 0.9% 50 ML IV ONE (00:22)
[2017-05-18 00:31] LABS: ALB/GLOB RATIO 1.4 (1.0-1.8); ALKALINE PHOSPHATASE 68 U/L (34-104); ANION GAP 14.8 (7.0-16.0); BILIRUBIN,TOTAL 0.3 mg/dL (0.3-1.0); BUN - UREA NITROGEN 31 mg/dL (7-25); CALCIUM SERUM 9.3 mg/dL (8.6-10.3); CARBON DIOXIDE 17.4 mEq/L (21.0-31.0); CHLORIDE 106 mEq/L (98-107); CREATININE - SERUM 1.5 mg/dL (0.7-1.3); GFR AFRICAN-AMERICAN > 60.0 ml/min (>90); GFR NON AFRICAN-AMERICAN 50.4 ml/min; GLUCOSE 228 mg/dL (70-105); POTASSIUM SERUM 4.2 mEq/L (3.5-5.1); SGOT 6 U/L (13-39); SGPT/ALT < 3 U/L (7-52); SODIUM SERUM 134 mEq/L (136-145); TOTAL PROTEIN,SERUM 6.9 gm/dL (6.0-8.3)
[2017-05-18] MEDS ORDERED: Sodium Chloride 0.9% 1,000 ML IV ONE (00:48)
[2017-05-18 02:53] LABS: URINE MICROSCOPIC INDICATED? YES; URINE SOURCE RANDOM
[2017-05-18 02:58] LABS: URINE BILIRUBIN NEGATIVE (NEGATIVE); URINE BLOOD NEGATIVE (NEGATIVE); URINE GLUCOSE (UA) >=1000 mg/dL (NEGATIVE); URINE KETONE NEGATIVE (NEGATIVE); URINE LEUKOCYTE ESTERASE NEGATIVE (NEGATIVE); URINE NITRATE NEGATIVE (NEGATIVE); URINE PH 5.5 (4.6 - 8.0); URINE PROTEIN NEGATIVE (NEGATIVE); URINE UROBILINOGEN 0.2 E.U./dL (0.2 - 1.0)
[2017-05-18 03:00] LABS: URINE CLARITY CLEAR (CLEAR); URINE COLOR YELLOW
[2017-05-18 03:02] LABS: URINE BACTERIA FEW /hpf (NONE SEEN); URINE EPITHELIAL CELLS OCCASIONAL /lpf (FEW); URINE WBC 0-2 /hpf (0-5)
[2017-05-18 04:37] LABS: TOTAL CELLS COUNTED 100
[2017-05-18 04:38] LABS: NEUTROPHILS 83 % (40-80)
[2017-05-18 04:39] LABS: BAND NEUTROPHILE 2 % (0-10); EOSINOPHIL 2 % (0-5); HYPOCHROMIA 1+; LYMPHOCYTE 8 % (20-50); MONOCYTE 5 % (2-10); PLATELET ESTIMATE ADEQUATE (NORMAL)
[2017-05-18 07:28] LABS: HEMOGLOBIN 12.3 gm/dL (12-16); MEAN CELL VOLUME 88.4 fl (80-99); MEAN CORPUSCULAR HEMOGLOBIN 29.3 pg (26.0-30.0); MEAN CORPUSCULAR HGB CONC 33.2 pg (28.0-36.0); MEAN PLATELET VOLUME 8.4 fl; PLATELET COUNT 308 Th/cmm (150-400); RED BLOOD COUNT 4.19 Mil/cmm (4.30-5.70); RED CELL DISTRIBUTION WIDTH 14.3 % (11.5-20.0)
[2017-05-18 07:31] LABS: WHITE BLOOD COUNT 14.8 Th/cmm (4.8-10.8)
[2017-05-18 08:15] LABS: ANION GAP 12.2 (7.0-16.0); BUN - UREA NITROGEN 29 mg/dL (7-25); CALCIUM SERUM 9.2 mg/dL (8.6-10.3); CHLORIDE 108 mEq/L (98-107); CREATININE - SERUM 1.3 mg/dL (0.7-1.3); GFR AFRICAN-AMERICAN > 60.0 ml/min (>90); GFR NON AFRICAN-AMERICAN 59.5 ml/min; GLUCOSE 217 mg/dL (70-105); POTASSIUM SERUM 4.2 mEq/L (3.5-5.1); SODIUM SERUM 136 mEq/L (136-145)
--- NOTE | 2017-05-18 08:20 | Diagnostic Imaging Report ---
Exam: CT examination of the pelvis HISTORY: Abdominal pain. Total DLP equals 433 CTDI equals 9.0 Findings: Multiple contiguous thin section of the abdomen pelvis obtained from lower thorax to pubic symphysis without administration of contrast material. No prior studies available comparison. The study demonstrates normal aeration of lung parenchyma the bases The liver and spleen are normal. The pancreas is intact. The adrenal glands are normal. The kidneys demonstrate no evidence of obstructive uropathy or nephrolithiasis. There is a question of a small 1 cm cyst in left kidney. The gallbladder is distended. The examination of the mid lower abdomen pelvis is a suboptimal due to severe motion artifacts patient was not able to cooperate and follow the procedure. The aorta is calcified. There is no evidence of free fluid collection. The appendix is normal. The urinary bladder is distended. There is no evidence of diverticular disease of diverticulitis. There is evidence for right inguinal hernia containing fat. Degenerative changes of the lower lumbar sacral spine appreciated. Bony structures demonstrate no evidence for lytic or blastic lesions. IMPRESSION: Somewhat limited examination due to patient motion artifacts. Nonspecific bowel gas pattern. Distended urinary bladder.
--- NOTE | 2017-05-18 08:23 | Diagnostic Imaging Report ---
Portable chest x-ray Time: 0019 hours History: Chest pain Allowing for portable technique the heart size is normal. No focal pulmonary parenchymal processes. No hilar or mediastinal abnormalities. Impression: No acute abnormalities.
[2017-05-18 09:30] LABS: BILIRUBIN,TOTAL 0.3 mg/dL (0.3-1.0); SGOT 4 U/L (13-39); SGPT/ALT < 3 U/L (7-52); TOTAL PROTEIN,SERUM 6.4 gm/dL (6.0-8.3)
[2017-05-18 10:09] LABS: BAND NEUTROPHILE 2 % (0-10); EOSINOPHIL 2 % (0-5); LYMPHOCYTE 7 % (20-50); MONOCYTE 8 % (2-10); NEUTROPHILS 81 % (40-80); TOTAL CELLS COUNTED 100
[2017-05-18 10:10] LABS: PLATELET ESTIMATE ADEQUATE (NORMAL)
[2017-05-18 10:25] LABS: ALBUMIN 3.5 gm/dL (4.2-5.5)
[2017-05-18 10:26] LABS: ALB/GLOB RATIO 1.2 (1.0-1.8)
[2017-05-18 10:27] LABS: ALKALINE PHOSPHATASE 72 U/L (34-104)
== END 2017-05-18 10:23 | disposition home or self-care (01) ==
LOC: ER 22:35
DX: J20.9 Acute bronchitis, unspecified (principal); R10.11 Right upper quadrant pain; E11.9 Type 2 diabetes mellitus without complications; E78.5 Hyperlipidemia, unspecified; I11.0 Hypertensive heart disease with heart failure; I50.9 Heart failure, unspecified
CPT/HCPCS: 99285; 96365; 93005; 71045; 84484 ×2; 83880; 36415 ×2; 83605 ×2; 84443; 85007 ×2; 85027 ×2; 81001; 80053 ×2; 87040; 74176; J0696 ×2; J7030

== ENCOUNTER 2017-05-27 13:30 | Emergency (ER) | payer MEDICAID ==
[2017-05-27] MEDS ORDERED: Sodium Chloride 0.9% 1,000 ML IV ONE ×2 (14:10→14:41)
--- NOTE | 2017-05-27 14:14 | ED Physician Chart ---
ED Chief Complaint/HPI - Patient Information Date Seen:: 05/27/17 Time Seen:: 14:09 Chief Complaint:: RT ANTERIOR CHEST AND RT HIP INJURY LAST PM History of Present Illness:: PT FELL OUT OF BED ONTO CONCRETE FLOOR LAST PM SUSTAINING INJURY TO LT AND CHEST AND RT HIP/ THE PT RATES PAIN 10/10. INCREASED PAIN IN BOTH AREAS WITH MOVEMENT, DEEP BREATH. NO HEAD INJURY OR LOC. NO NECK OR BACK PAIN. NO HEADACHE, NAUSEA OR VOMITING. HAS SEPARATE ISSUE WITH RT KNEE NEEDING INJECTION Allergies:: Allergies Allergy/AdvReac Type Severity Reaction Status Date / Time No Known Allergies Allergy Verified 05/17/17 22:47 MECHANICAL FALL Vitals:: Vital Signs - 8 hr 05/27/17 13:40 Temp 99.3 F HR 101 RR 19 BP 126/79 O2 Sat % 96 Historian:: Patient Review:: Nurse's Note Reviewed (nurse's notes on triage paper work reviewed.), Transfer documents Reviewed ED Review of Systems - Review of Systems General/Constitutional: No fever, No chills, No weight loss, No weakness, No diaphoresis, No loss of appetite Skin: No skin lesions, No rash, No bruising Head: No headache, No light-headedness Eyes: No loss of vision, No diplopia ENT: No earache, Nasal drainage Neck: No neck pain, No swelling, No stiffness, Mass noted Cardio Vascular: Chest pain, No palpitations, No orthopnea, No edema Pulmonary: No SOB, No cough, No sputum, No wheezing GI: No nausea, No vomiting, No diarrhea, No pain, No hematochezia G/U: No dysuria, No frequency, No hematuria Musculoskeletal: Bone or joint pain, No back pain, No muscle pain Endocrine: No polyuria, No polydipsia Psychiatric: No prior psych history, No depression, No anxiety, Suicidal ideation, No suicidal ideation Hematopoietic: No bruising, No lymphadenopathy Allergic/Immuno: No urticaria, No angioedema Neurological: No syncope, No focal symptoms, No weakness, No paresthesia, No headache, No seizure, No dizziness, No confusion, No vertigo ED Past Medical History - Past Medical History Past Medical History: HTN, DM, Other (HAS HAD PARKINSON'S DISEASE for about 2 years. Has had diabetes for 10 years. Has had hypertension for about 8 years.) Social History: Smoker, Single, Employment:: Patient lives with his girlfriend. Family Medical History - Family Member Mother History Unknown: Yes Ethnicity: Non- Living Status: Hx Family Cancer: Yes (Breast) Hx Family Coronary Artery Disease: No Hx Family Congestive Heart Failure: No Hx Family Hypertension: No Hx Family Stroke: No Hx Family Seizures: No Hx Family Dementia: No Hx Family HIV: No Hx Family Hepatitis: No Father History Unknown: Yes Ethnicity: Non- Living Status: Hx Family Cancer: No Hx Family Coronary Artery Disease: No Hx Family Congestive Heart Failure: No Hx Family Hypertension: Yes Hx Family Stroke: No Hx Family Diabetes: Yes Hx Family Seizures: No Hx Family Dementia: No Hx Family AIDS: No Hx Family HIV: No Hx Family COPD: No Hx Family Hepatitis: No Hx Family Psychiatric Problems: No Hx Family Tuberculosis: No ED Physical Exam - Physical Examination General/Constitutional: Awake, Well-developed, well-nourished, Alert Other Gen/Cons comments:: MODERATE PAIN WHEN HE MOVES. Head: Atraumatic Eyes: Lids, conjuctiva normal, PERRL, EOMI Skin: Nl inspection, No rash, No skin lesions, No ecchymosis, Well hydrated, No lymphadenopathy ENMT: External ears, nose nl, TM canals nl, Nasal exam nl, Lips, teeth, gums nl , Oropharynx nl, Tonsils nl Neck: Nontender, Full ROM w/o pain, No JVD, No nuchal rigidity, No bruit, No mass, No stridor Respiratory: Nl effort/Exclusion, No Wheeze/Rhonchi/Rales Cardio Vascular: RRR, No murmur, gallop, rubs, NL S1 S2 Other Cardio Vascular comments:: Good distal pulses in all 4 extremities. GI: No tenderness/rebounding/guarding, No organomegaly, No hernia, Nondistended , No mass/bruits, No McBurney tenderness : No CVA tenderness Extremities: No tenderness or effusion Other Extremities comments:: Decreased range of motion right hip with any movement causing significant pain. Neuro/Psych: Alert/oriented, Normal sensory exam, Normal motor strength, Judgement/insight normal, Mood normal, No focal deficits Other Neuro/Psych comments:: Not ambulated over concern for possible right hip fracture. Misc: Normal back (no C-spine tenderness, T-spine tenderness, or L spine tenderness.) ED Labs/Radiology/EKG Results - Lab Results Results: SINGLE VIEW JADIEL fracture left six rib. FX-RAY: No pneumothorax. No cardiomegaly or CHF. No areas of pulmonary consolidation or infiltrate. Impression: fracture six left rib. Two views right hip: no hip fracture, no subluxation normal soft tissues. Impression: no acute traumatic findings. F ED Assessment - Assessment General Assessment: CASE SUMMARY: THIS 61-YEAR-OLD MALE WITH PARKINSON'S DISEASE FELL OUT OF BED LANDING ON A CEMENT FLOOR. HE SUSTAINED INJURIES TO HIS LEFT CHEST AND RIGHT HIP REGION. PLAIN FILMS SHOW THE PATIENT HAVE NO FRACTURE IN THE REGION OF THE HIP AND THIS WAS VERIFIED BY CT SCAN. X-RAYS OF THE RIBS SHOWED A FRACTURE OF THE SIXTH RIB ON THE LEFT SIDE WITH NO ASSOCIATED PNEUMOTHORAX, HEMOTHORAX OR PLEURAL EFFUSION. THE PATIENT WAS GIVEN A RIB BELT AND ADVISED TO TAKE IT OFF EVERY 4 TO 5 HOURS AND TAKE SOME DEEP PRESS. HE HAD HIS OWN PRESCRIPTION FOR NORCO AND NO ADDITIONAL MEDICATION WAS PRESCRIBED. PATIENT WAS ADVISED TO FOLLOW UP WITH HIS PRIMARY CARE PHYSICIAN AND 3 TO 4 DAYS FOR ROUTINE REEVALUATION. F MDM DDX LG CHEST INJUY: NO PNEUMOTHORAX BASED ON CHEST X-RAY. NO PULMONARY CONTUSION BASED ON X-RAY FINDINGS. NO HEMOTHORAX BASED ON NEGATIVE CHEST X-RAY. F ED Septic Shock - . Is Septic Shock (SBP<90, OR Lactate>4 mmol\L) present?: No - <6hrs of presentation: Vital Signs: Vital Signs - 8 hr 05/27/17 13:40 Temp 99.3 F HR 101 RR 19 BP 126/79 O2 Sat % 96 ED Reassessment (Disposition) - Reassessment Reassessment Condition:: Improved - Diagnosis Diagnosis:: LEFT SIXTH RIB FRACTURE. CONTUSION RIGHT HIP RETURN TO THE ER IF YOUR SYMPTOMS WORSEN FOLLOW UP WITH YOUR REGULAR DOCTOR IN 2 WEEKS IF SYMPTOM HAVEN'T IMPROVED. - Patient Disposition Discharge/Transfer:: Home Condition at Disposition:: Stable ED Discharge Plan - Patient Disposition Admit/Discharge/Transfer: PT DISCHARGED HOME Instructions: Rib Fracture, [id number] Additional Instructions: follow up with your primary medical doctor YOLA take prescribed medications as ordered
[2017-05-27] MEDS ORDERED: Morphine Sulfate 4 mg/mL 1mL Syr IVP ONE ×2 (14:38→19:54)
[2017-05-27 14:59] LABS: % BASOPHILS 0.3 % (0.0-2.0); % EOSINOPHILS 1.9 % (0.0-5.0); % LYMPHOCYTES 12.4 % (20.0-50.0); % MONOCYTES 5.2 % (2.0-10.0); % NEUTROPHILS 80.2 % (40.0-80.0); EOSINOPHILE ABSOLUTE 0.2 Th/cmm (0.1-0.4); HEMATOCRIT 36.4 % (41.0-60); HEMOGLOBIN 12.1 gm/dL (12-16); LYMPHOCYTE ABSOLUTE 1.3 Th/cmm (1.5-3.0); MEAN CELL VOLUME 87.7 fl (80-99); MEAN CORPUSCULAR HEMOGLOBIN 29.2 pg (26.0-30.0); MEAN CORPUSCULAR HGB CONC 33.3 pg (28.0-36.0); MEAN PLATELET VOLUME 7.7 fl; MONOCYTE ABSOLUTE 0.5 Th/cmm (0.3-1.0); NEUTROPHILE ABSOLUTE 8.5 Th/cmm (1.8-8.0); RED BLOOD COUNT 4.15 Mil/cmm (4.30-5.70); RED CELL DISTRIBUTION WIDTH 14.4 % (11.5-20.0)
[2017-05-27 15:10] LABS: WHITE BLOOD COUNT 10.5 Th/cmm (4.8-10.8)
[2017-05-27 15:11] LABS: PLATELET COUNT 512 Th/cmm (150-400)
[2017-05-27 15:21] LABS: ALB/GLOB RATIO 1.3 (1.0-1.8); ALBUMIN 4.2 gm/dL (4.2-5.5); ALKALINE PHOSPHATASE 87 U/L (34-104); ANION GAP 12.8 (7.0-16.0); BILIRUBIN,TOTAL 0.3 mg/dL (0.3-1.0); BUN - UREA NITROGEN 31 mg/dL (7-25); CARBON DIOXIDE 22.7 mEq/L (21.0-31.0); CHLORIDE 103 mEq/L (98-107); GFR AFRICAN-AMERICAN > 60.0 ml/min (>90); GFR NON AFRICAN-AMERICAN > 60.0 ml/min; GLUCOSE 186 mg/dL (70-105); POTASSIUM SERUM 4.5 mEq/L (3.5-5.1); SGOT 7 U/L (13-39); SGPT/ALT 7 U/L (7-52); SODIUM SERUM 134 mEq/L (136-145); TOTAL PROTEIN,SERUM 7.4 gm/dL (6.0-8.3)
[2017-05-27] MEDS ORDERED: HYDROmorphone 1 mg/mL 1mL Syr IVP STA (16:08)
[2017-05-27] MEDS ORDERED: HYDROmorphone 1 mg/mL 1mL Syr ONE (16:17)
[2017-05-27] MEDS ORDERED: Morphine Sulfate 2 mg/mL 1mL Syr ONE (19:57)
[2017-05-27] MEDS ORDERED: Morphine Sulfate 4 mg/mL 1mL Syr ONE (19:57)
--- NOTE | 2017-05-28 07:48 | Diagnostic Imaging Report ---
Pelvis and right hip 2 views Indication: Fall Comparison: none Findings: Minimal degenerative changes of both hip joints are noted. No evidence of an acute fracture or dislocation. The SI joints are preserved. Impression: No evidence of an acute fracture. In the setting of trauma, if clinical symptoms persist and there is continued concern for an occult fracture, follow up exams in 5-7 days is suggested.
--- NOTE | 2017-05-28 08:05 | Diagnostic Imaging Report ---
CT pelvis without IV contrast HISTORY: Pain, rule out right hip fracture COMPARISON: Pelvis and right hip x-ray earlier the same day Technique: Axial images were obtained from the lower abdomen to the proximal bilateral femurs without IV contrast. Reconstructions were made. total DLP: 316, CTDI9.1 Findings: Moderate amount of stool is seen throughout the colon gas-filled loops of bowel. Small fat-containing right inguinal hernia is noted. Atherosclerotic vascular disease is noted. There is subtle lucency seen along the right intertrochanteric region (image 63, series 3] . This is probably a nutrient vessel or a variant. A nondisplaced fracture is considered less likely. No dislocation. Mild degenerative changes of both hip joints are noted. Degenerative changes of the lower lumbar spine are noted. IMPRESSION: Subtle lucency seen along the right femoral intertrochanteric region. This is may represent a nutrient vessel or may be a variant. A nondisplaced fracture is considered less likely. If there is continued concern for an occult fracture, MRI follow-up is also recommended for further assessment.
--- NOTE | 2017-05-28 08:42 | Diagnostic Imaging Report ---
Left RIBS (4 views) HISTORY: Pain, trauma No acute bony abnormalities. No fractures. No acute pulmonary parenchymal or pleural abnormalities. IMPRESSION: No acute abnormalities
== END 2017-05-27 20:15 | disposition home or self-care (01) ==
LOC: ER 13:30
DX: S22.32XA Fracture of one rib, left side, initial encounter for closed fracture (principal); X58.XXXA Exposure to other specified factors, initial encounter; Y93.89 Activity, other specified; Y92.89 Other specified places as the place of occurrence of the external cause; Y99.8 Other external cause status
CPT/HCPCS: 99285; 96374; 96375; 96376; 93005; 71101; 73502; 72192; 36415; 85025; 80053; J2270; J2405 ×2; 73501; J1170; J7030

== ENCOUNTER 2017-06-05 00:20 | Emergency (ER) | payer MEDICARE, MEDICAID ==
--- NOTE | 2017-06-05 04:22 | ER Physician Documentation ---
DATE OF SERVICE: 06/05/2017 HISTORY OF PRESENT ILLNESS: The patient, homeless gentleman, walked in the hospital. There were some conflicting reports. According to the ER physician, there was some fracture into the left rib. According to the radiologist, there was a fracture found into the sixth rib, and the patient was having pain and he was worried about breathing. I do not think that the patient needs a belt, nowadays nobody applies a belt, as applying the belt decreases the breathing and then you will collect some fluids and you get infection, so best is not to apply any belt of that kind, and so the belt was removed by me and the patient can go home and sleep on the other side. For pain, the patient can take some Tylenol 2 tablets, 650 mg 3-4 times a day as needed. If he cannot tolerate that, does not like that, the patient can take some Motrin tablet 400 mg 2-3 times a day, and slowly because he is 61 years old, but he looks at least 15 years older than the stated age, it might take a little longer time to heal, but it is only one rib and he should get better, it is only in the left sixth rib area. Right now, the pain threshold according to the nurse was 6/10. Vital signs shows temperature is 98.1, pulse of 92, respirations 20, BP 135/77, oxygen saturation 98%, height of 5 feet 5 inches, weighing 157 pounds. REVIEW OF SYSTEMS: The patient does not have any other significant medical problems other than the patient has diabetes, hypertension and Parkinson's disease, for which he takes the medications. The patient was explained about the left rib pain, analgesics will improve the pain. The patient lies on the right side without moving that much, and once he gets up he can move around. He can slowly start to increase his depth of breathing and he should be alright. Review of systems is essentially went through all the readings of the past were all done by the previous physicians, they are all negative. The patient has a previous history of bilateral knee arthroscopy and right shoulder arthroscopy was done. FAMILY HISTORY: Mother had breast carcinoma. MEDICATIONS: The patient will take Tylenol and/or Motrin whatever he prefers he is okay. He is aware that he can buy these medications [id number], he is not worried. He is more worried about his breathing and I reassured him about the breathing, tying the brace will make him have lung infection, removing it and breathing will remove any infection if at all he has anything. The patient is taking medication for hypertension and diabetes. SOCIAL HISTORY: The patient is a smoker. He is single. He is . The patient was seen by the radiologist and it showed a fracture of the 6th rib on the left side, and there was no associated pneumothorax, hemothorax, or pleural effusion. A rib belt is not needed, hence it is taken out. He had his own prescription for Parmelee with no additional medication prescribed to him. If he is taking Parmelee from whatever root of source, then he does not need any more medication to be taken. There are no signs of any infection, etc. seen. The patient will go and see his own physician if needed. The patient was seen by Dr. Andrew Davison initially on 05/27/2017 and then he dictated it on 1409 hours and he signed it on 1516 hours on 05/28/2017, almost three-fourth of an hour passed by this thing. FINAL DIAGNOSES: 1. According to radiology report, left rib fracture. 2. Removal of the rib brace, not needed. 3. Analgesics in the form of Tylenol or Motrin, which is [id number]. Thank you again. JOB# [id number]
--- NOTE | 2017-10-02 16:36 | ER Physician Documentation ---
DATE OF SERVICE: ADDENDUM This is the patient to the best of my knowledge, he was in bed #3. He was seen by Dr. Davison and I believe the patient was given some rib brace because the patient had left rib fractures. Now a days, nobody gives any rib fracture, so that was taken out and physical examination, review was done, but is not dictated, so let me tell you that a 14-point review of systems was done, it was essentially negative. PHYSICAL EXAMINATION: General physical exam was otherwise benign and negative. EYES: Normal. Conjunctivae pink, sclerae white. EXTREMITIES: No edema, no cyanosis, no petechia, no ecchymosis. GENERAL: Benign and negative. CHEST: Clear. No rales, no rhonchi. No bronchial breathing. LUNGS: Reveals normal heart sounds. No arrhythmia noted. ABDOMEN: Soft, benign, and negative. Bowel sounds are normal. CENTRAL NERVOUS SYSTEM: Normal. Overall, general examination and examination of all systems was found to be negative except for the pain in the left rib area where he had the fracture for which the patient was given Tylenol and was told to take some Motrin and/or Tylenol or combine one Tylenol and one Motrin as needed, which is [id number] and to go home and he was discharged home happily. I think I saw him in bed #3. JOB# [id number]
== END 2017-06-05 01:20 | disposition home or self-care (01) ==
LOC: ER 00:20
DX: S22.32XA Fracture of one rib, left side, initial encounter for closed fracture (principal); X58.XXXA Exposure to other specified factors, initial encounter; Y93.89 Activity, other specified; Y92.89 Other specified places as the place of occurrence of the external cause; Y99.8 Other external cause status

== ENCOUNTER 2017-10-31 16:52 | Emergency (ER) | payer MEDICAID ==
--- NOTE | 2017-10-31 17:06 | ED Physician Chart ---
ED Chief Complaint/HPI - Patient Information Date Seen:: 10/31/17 Time Seen:: 16:50 Chief Complaint:: neck pain History of Present Illness:: Patient was apparently standing in front of the police station when he had a syncopal episode. He stated he blacked out. No chest pain or shortness of breath. Allergies:: Allergies Allergy/AdvReac Type Severity Reaction Status Date / Time No Known Allergies Allergy Verified 06/05/17 00:27 Historian:: Patient, EMS ED Review of Systems - Review of Systems General/Constitutional: No fever, No chills, No weight loss, No weakness, No diaphoresis, No edema, No loss of appetite Skin: No skin lesions, No rash, No bruising Head: No headache, No light-headedness Eyes: No loss of vision, No pain, No diplopia ENT: No earache, No nasal drainage, No sore throat, No tinnitus Neck: Neck pain, No swelling, No thyromegaly, No stiffness, No mass noted Cardio Vascular: No chest pain, No palpitations, No PND, No orthopnea, No edema Pulmonary: No SOB, No cough, No sputum, No wheezing GI: No nausea, No vomiting, No diarrhea, No pain, No melena, No hematochezia, No constipation, No hematemesis G/U: No dysuria, No frequency, No hematuria Musculoskeletal: No bone or joint pain, No back pain, No muscle pain Endocrine: No polyuria, No polydipsia Psychiatric: No prior psych history, No depression, No anxiety, No suicidal ideation Hematopoietic: No bruising, No lymphadenopathy Allergic/Immuno: No urticaria, No angioedema Neurological: No syncope, No focal symptoms, No weakness, No paresthesia, No headache, No seizure, No dizziness, No confusion, No vertigo ED Past Medical History - Past Medical History Past Medical History: HTN, DM, Other (Parkinson's disease) Social History: Smoker, No Alcohol Surgical History: other (both knees and right shoulder) Psychiatricy History: None Medication: Reviewed Family Medical History - Family Member Mother History Unknown: Yes Ethnicity: Non- Living Status: Hx Family Cancer: Yes (BREAST) Hx Family Coronary Artery Disease: No Hx Family Congestive Heart Failure: No Hx Family Hypertension: No Hx Family Stroke: No Hx Family Seizures: No Hx Family Dementia: No Hx Family HIV: No Hx Family Hepatitis: No Father History Unknown: Yes Ethnicity: Non- Living Status: Hx Family Cancer: No Hx Family Coronary Artery Disease: No Hx Family Congestive Heart Failure: No Hx Family Hypertension: Yes Hx Family Stroke: No Hx Family Diabetes: Yes Hx Family Seizures: No Hx Family Dementia: No Hx Family AIDS: No Hx Family HIV: No Hx Family COPD: No Hx Family Hepatitis: No Hx Family Psychiatric Problems: No Hx Family Tuberculosis: No ED Physical Exam - Physical Examination General/Constitutional: Awake, Well-developed, well-nourished, Alert, No distress, GCS 15, Non-toxic appearing, Ambulatory Other Gen/Cons comments:: Tremor right arm Head: Atraumatic Eyes: Lids, conjuctiva normal, PERRL, EOMI Skin: Nl inspection, No rash, No skin lesions, No ecchymosis, Well hydrated, No lymphadenopathy ENMT: External ears, nose nl, Nasal exam nl Other ENMT comments:: Edentulous with upper dentures Neck: No JVD, No nuchal rigidity, No bruit, No mass, No stridor Other Neck comments:: About 80 of forward flexion of the neck. Mild C-spine tenderness without deformity. Respiratory: Nl effort/Exclusion, Clear to Auscultation, No Wheeze/Rhonchi/Rales Cardio Vascular: RRR, No murmur, gallop, rubs, NL S1 S2 GI: No tenderness/rebounding/guarding, No organomegaly, No hernia, Normal BS's, Nondistended, No mass/bruits, No McBurney tenderness : No CVA tenderness Extremities: No tenderness or effusion, Full ROM, normal strength in all extremities, No edema, Normal digits & nails Neuro/Psych: Alert/oriented, Normal sensory exam, Normal motor strength, Judgement/insight normal, No focal deficits Misc: Normal back, No paraspinal tenderness ED Labs/Radiology/EKG Results - Lab Results Comments:: Laboratory Results - last 24 hr 10/31/17 10/31/17 17:05 17:05 WBC 11.6 H RBC 4.47 Hgb 13.4 Hct 39.6 L MCV 88.7 MCH 29.9 MCHC Differential 33.7 RDW 15.5 Plt Count 443 H MPV 8.0 Neutrophils % 76.6 Lymphocytes % 13.5 L Monocytes % 7.9 Eosinophils % 2.0 Basophils % 0.0 Sodium 136 Potassium 3.7 Chloride 105 Carbon Dioxide 23.5 Anion Gap 11.2 BUN 22 Creatinine 1.3 Est GFR ( Amer) > 60.0 Est GFR (Non-Af Amer) 59.3 BUN/Creatinine Ratio 16.9 Glucose 218 H Calcium 9.3 Magnesium 1.6 L - Radiology Results Results: CAT scan of cervical spine showed degenerative changes only - EKG Interpretations Rate & Rhythm: sinus tachycardia with a rate of 112 [place]: normal Comments:: Q waves in II, III, aVF ED Septic Shock - . Is Septic Shock (SBP<90, OR Lactate>4 mmol\L) present?: No ED Reassessment (Disposition) - Reassessment Reassessment Condition:: Unchanged - Diagnosis Diagnosis:: Cervical strain; degenerative changes cervical spine; hyperglycemia; diabetes - Aftercare/Follow up Instructions Aftercare/Follow-Up Instructions:: Refer to Discharge Instructions - Patient Disposition Discharge/Transfer:: Home Condition at Disposition:: Stable, Improved
[2017-10-31 17:26] LABS: % LYMPHOCYTES 13.5 % (20.0-50.0); % MONOCYTES 7.9 % (2.0-10.0); % NEUTROPHILS 76.6 % (40.0-80.0); EOSINOPHILE ABSOLUTE 0.2 Th/cmm (0.1-0.4); HEMATOCRIT 39.6 % (41.0-60); HEMOGLOBIN 13.4 gm/dL (12-16); LYMPHOCYTE ABSOLUTE 1.6 Th/cmm (1.5-3.0); MEAN CELL VOLUME 88.7 fl (80-99); MEAN CORPUSCULAR HEMOGLOBIN 29.9 pg (26.0-30.0); MEAN CORPUSCULAR HGB CONC 33.7 pg (28.0-36.0); MONOCYTE ABSOLUTE 0.9 Th/cmm (0.3-1.0); NEUTROPHILE ABSOLUTE 8.9 Th/cmm (1.8-8.0); PLATELET COUNT 443 Th/cmm (150-400); RED BLOOD COUNT 4.47 Mil/cmm (4.30-5.70); RED CELL DISTRIBUTION WIDTH 15.5 % (11.5-20.0); WHITE BLOOD COUNT 11.6 Th/cmm (4.8-10.8)
[2017-10-31 17:28] LABS: ANION GAP 11.2 (7.0-16.0); BUN - UREA NITROGEN 22 mg/dL (7-25); CALCIUM SERUM 9.3 mg/dL (8.6-10.3); CARBON DIOXIDE 23.5 mEq/L (21.0-31.0); CHLORIDE 105 mEq/L (98-107); CREATININE - SERUM 1.3 mg/dL (0.7-1.3); GFR AFRICAN-AMERICAN > 60.0 ml/min (>90); GFR NON AFRICAN-AMERICAN 59.3 ml/min; GLUCOSE 218 mg/dL (70-105); MAGNESIUM 1.6 mg/dL (1.9-2.7); POTASSIUM SERUM 3.7 mEq/L (3.5-5.1); SODIUM SERUM 136 mEq/L (136-145)
[2017-10-31] MEDS ORDERED: Acetaminophen 500 MG TAB PO STA (19:44)
[2017-10-31] MEDS ORDERED: Acetaminophen 500 MG TAB ONE (19:45)
[2017-10-31 21:25] LABS: A1C % 8.2 % (4.0-6.0)
--- NOTE | 2017-11-01 08:58 | Diagnostic Imaging Report ---
Exam: CT examination cervical spine. HISTORY: Trauma. Total DLP equals 451 CTDI equals 25.3 Findings: Multiple contiguous thin section of cervical spine obtained from the base of skull to the thoracic outlet without the demonstration contrast material, no prior studies available comparison. The study demonstrates extensive degenerative osteophytic changes with the narrowing of the intravertebral disc spaces. Spurring bridging. There is evidence of for spondylolisthesis or 5 C3 on the C4 approximately 50%. Posterior elements intact no prevertebral soft tissue swelling is noted. There is no evidence of spinal stenosis. IMPRESSION: Degenerative changes of the cervical spine with narrowing of the intravertebral disc spaces facet arthropathy bridging and spurring Spondylolisthesis of C3 on C4 approximately 15%
== END 2017-10-31 20:10 | disposition home or self-care (01) ==
LOC: ER 16:52
DX: S16.1XXA Strain of muscle, fascia and tendon at neck level, initial encounter (principal); E11.65 Type 2 diabetes mellitus with hyperglycemia; R25.1 Tremor, unspecified; I10 Essential (primary) hypertension; F17.200 Nicotine dependence, unspecified, uncomplicated; X58.XXXA Exposure to other specified factors, initial encounter; Y93.89 Activity, other specified; Y92.89 Other specified places as the place of occurrence of the external cause; Y99.8 Other external cause status
CPT/HCPCS: 36415-UA; 72125-TC; 80048-TC; 83036-90; 83735-TC; 85025-TC; 93005; Z7610

== ENCOUNTER 2017-11-01 12:52 | Emergency (ER) | payer MEDICAID ==
--- NOTE | 2017-11-01 13:14 | ED Physician Chart ---
ED Chief Complaint/HPI - Patient Information Date Seen:: 11/01/17 Time Seen:: 13:00 Chief Complaint:: Syncope History of Present Illness:: onset x 3 days of syncope, NS, dizziness, and vertigo resulting in multiple falls with right shoulder pain x 3 hours [employer]; pt denies H/As, neck pain, C/P, SOB, Abd. Pain, A/N/V/D/C, fever, chills, bleeding, or urinary s/s; pt's last tetanus shot: < 5 years; UTD Allergies:: Allergies Allergy/AdvReac Type Severity Reaction Status Date / Time No Known Allergies Allergy Verified 06/05/17 00:27 Vitals:: Vital Signs - 8 hr 11/01/17 13:05 Temp 97.7 F HR 106 RR 19 BP 156/93 O2 Sat % 99 Historian:: Patient Review:: Nurse's Note Reviewed <Abel Alejandra - Last Filed: 11/01/17 19:08> - Patient Information Allergies:: Allergies Allergy/AdvReac Type Severity Reaction Status Date / Time No Known Allergies Allergy Verified 06/05/17 00:27 Vitals:: Vital Signs - 8 hr 11/01/17 11/01/17 11/01/17 13:05 13:09 14:40 Temp 97.7 F 97.7 F 98.3 F HR 106 106 96 RR 19 19 20 BP 156/93 156/93 O2 Sat % 99 99 98 <Renetta Correa - Last Filed: 11/01/17 21:17> ED Review of Systems - Review of Systems General/Constitutional: No fever, No chills, No weight loss, No weakness, No diaphoresis, No edema, No loss of appetite Skin: No skin lesions, No rash, No bruising Head: No headache, No light-headedness Eyes: No loss of vision, No pain, No diplopia ENT: No earache, No nasal drainage, No sore throat, No tinnitus Neck: No neck pain, No swelling, No thyromegaly, No stiffness, No mass noted Cardio Vascular: No chest pain, No palpitations, No PND, No orthopnea, No edema Pulmonary: No SOB, No cough, No sputum, No wheezing GI: No nausea, No vomiting, No diarrhea, No pain, No melena, No hematochezia, No constipation, No hematemesis G/U: No dysuria, No frequency, No hematuria Musculoskeletal: No bone or joint pain, No back pain, No muscle pain Endocrine: No polyuria, No polydipsia Psychiatric: No prior psych history, No depression, No anxiety, No suicidal ideation, No homicidal ideation, No auditory hallucination, No visual hallucination Hematopoietic: No bruising, No lymphadenopathy Allergic/Immuno: No urticaria, No angioedema Neurological: Syncope, No focal symptoms, No weakness, No paresthesia, No headache, No seizure, Dizziness, No confusion, Vertigo <Abel Alejandra [facility] Filed: 11/01/17 19:08> ED Past Medical History - Past Medical History Obtainable: Yes Past Medical History: HTN, DM, Dyslipidemia Family History: Diabetes Melitus, HTN Social History: Smoker, Alcohol, No Drug Use, Single Surgical History: None Psychiatricy History: None Medication: Reviewed <Abel Alejandra Tio Filed: 11/01/17 19:08> Family Medical History - Family Member Mother History Unknown: Yes Ethnicity: Non- Living Status: Hx Family Cancer: Yes (BREAST) Hx Family Coronary Artery Disease: No Hx Family Congestive Heart Failure: No Hx Family Hypertension: No Hx Family Stroke: No Hx Family Seizures: No Hx Family Dementia: No Hx Family HIV: No Hx Family Hepatitis: No Father History Unknown: Yes Ethnicity: Non- Living Status: Hx Family Cancer: No Hx Family Coronary Artery Disease: No Hx Family Congestive Heart Failure: No Hx Family Hypertension: Yes Hx Family Stroke: No Hx Family Diabetes: Yes Hx Family Seizures: No Hx Family Dementia: No Hx Family AIDS: No Hx Family HIV: No Hx Family COPD: No Hx Family Hepatitis: No Hx Family Psychiatric Problems: No Hx Family Tuberculosis: No <Abel Alejandra [facility] Filed: 11/01/17 19:08> ED Physical Exam - Physical Examination General/Constitutional: Awake, Well-developed, well-nourished, Alert, No distress, GCS 15, Non-toxic appearing, Ambulatory Head: Atraumatic Eyes: Lids, conjuctiva normal, PERRL, EOMI Skin: Nl inspection, No rash, No skin lesions, No ecchymosis, Well hydrated, No lymphadenopathy ENMT: External ears, nose nl, TM canals nl, Nasal exam nl, Lips, teeth, gums nl , Oropharynx nl, Tonsils nl Neck: Nontender, Full ROM w/o pain, No JVD, No nuchal rigidity, No bruit, No mass, No stridor Respiratory: Nl effort/Exclusion, Clear to Auscultation, No Wheeze/Rhonchi/Rales Cardio Vascular: RRR, No murmur, gallop, rubs, NL S1 S2, Carotid/Femoral/Distal pulses equal bilaterally GI: No tenderness/rebounding/guarding, No organomegaly, No hernia, Normal BS's, Nondistended, No mass/bruits, No McBurney tenderness : No CVA tenderness Extremities: No tenderness or effusion, Full ROM, normal strength in all extremities, No edema, Normal digits & nails Other Extremities comments:: Right Shoulder Tenderness; no loss of ROMs; no ligament instability; good motor , tendon, and sensory functions; good NV functions Neuro/Psych: Alert/oriented, DTR's symmetric, Normal sensory exam, Normal motor strength, Judgement/insight normal, Mood normal, Normal gait, No focal deficits Misc: Normal back, No paraspinal tenderness <Abel Alejandra - Last Filed: 11/01/17 19:08> - Physical Examination General/Constitutional: Awake, Well-developed, well-nourished, Alert, No distress, GCS 15, Non-toxic appearing, Ambulatory Head: Atraumatic Eyes: Lids, conjuctiva normal, PERRL, EOMI Skin: Nl inspection, No rash, No skin lesions, No ecchymosis, Well hydrated, No lymphadenopathy ENMT: External ears, nose nl, Nasal exam nl, Lips, teeth, gums nl Neck: Nontender, Full ROM w/o pain, No JVD, No nuchal rigidity, No bruit, No mass, No stridor Respiratory: Nl effort/Exclusion, Clear to Auscultation, No Wheeze/Rhonchi/Rales Cardio Vascular: RRR, No murmur, gallop, rubs, NL S1 S2 Extremities: No tenderness or effusion, Full ROM, normal strength in all extremities, No edema, Normal digits & nails Other Extremities comments:: Patient has pinpoint tenderness in the region of the R rotator cuff that moves around. He over-exaggerates his response to palpation most probably because he wants narcotics and his drug screen is positive for opiates and he "ran out" of Disney 2 days ago. Neuro/Psych: Alert/oriented, DTR's symmetric, Normal sensory exam, Normal motor strength, Judgement/insight normal, Mood normal, Normal gait, No focal deficits Misc: Normal back, No paraspinal tenderness <Renetta Correa - Last Filed: 11/01/17 21:17> ED Labs/Radiology/EKG Results - Lab Results Comments:: Reviewed - Radiology Results Comments:: NAD - EKG Interpretations EKG Time:: 13:14 Rate & Rhythm: 101; ST Comments:: IVCD; non-specific st-t changes <Abel Alejandra - Last Filed: 11/01/17 19:08> - Lab Results Results: Laboratory Tests 11/01/17 11/01/17 11/01/17 13:20 13:20 13:20 WBC 7.7 RBC 4.06 L Hgb 12.3 Hct 36.1 L MCV 88.9 MCH 30.4 H MCHC Differential 34.1 RDW 15.3 Plt Count 388 MPV 7.7 Neutrophils % 68.9 Lymphocytes % 19.0 L Monocytes % 8.9 Eosinophils % 2.7 Basophils % 0.5 PT 10.6 INR 1.02 Sodium 136 Potassium 3.8 Chloride 108 H Carbon Dioxide 20.6 L Anion Gap 11.2 BUN 18 Creatinine 1.0 Est GFR ( Amer) > 60.0 Est GFR (Non-Af Amer) > 60.0 BUN/Creatinine Ratio 18.0 Glucose 177 H Calcium 9.0 Total Bilirubin 0.6 AST 6 L ALT < 3 L Alkaline Phosphatase 47 Creatine Kinase 54 Troponin I B-Natriuretic Peptide Total Protein 6.2 Albumin 4.0 L Globulin 2.2 Albumin/Globulin Ratio 1.8 Triglycerides 124 Cholesterol 140 LDL Cholesterol Direct 74 L HDL Cholesterol 40 Urine Source Urine Color Urine Clarity Urine pH Ur Specific [place] Urine Protein Urine Glucose (UA) Urine Ketones Urine Blood Urine Nitrate Urine Bilirubin Urine Urobilinogen Ur Leukocyte Esterase Urine RBC Urine WBC Ur Epithelial Cells Urine Bacteria Urine Mucus Urine Yeast Urine Opiates Screen Urine Methadone Screen Ur Barbiturates Screen Ur Tricyclics Screen Ur Phencyclidine Scrn Amphetamines Screen U Methamphetamines Scrn U Benzodiazepines Scrn U Cocaine Metab Screen U Cannabinoids Screen 11/01/17 11/01/17 11/01/17 13:20 13:20 20:15 WBC RBC Hgb Hct MCV MCH MCHC Differential RDW Plt Count MPV Neutrophils % Lymphocytes % Monocytes % Eosinophils % Basophils % PT INR Sodium Potassium Chloride Carbon Dioxide Anion Gap BUN Creatinine Est GFR ( Amer) Est GFR (Non-Af Amer) BUN/Creatinine Ratio Glucose Calcium Total Bilirubin AST ALT Alkaline Phosphatase Creatine Kinase Troponin I 0.01 B-Natriuretic Peptide 157.0 H Total Protein Albumin Globulin Albumin/Globulin Ratio Triglycerides Cholesterol LDL Cholesterol Direct HDL Cholesterol Urine Source Urine Color Urine Clarity Urine pH Ur Specific [place] Urine Protein Urine Glucose (UA) Urine Ketones Urine Blood Urine Nitrate Urine Bilirubin Urine Urobilinogen Ur Leukocyte Esterase Urine RBC Urine WBC Ur Epithelial Cells Urine Bacteria Urine Mucus Urine Yeast Urine Opiates Screen POSITIVE H Urine Methadone Screen NEGATIVE Ur Barbiturates Screen NEGATIVE Ur Tricyclics Screen NEGATIVE Ur Phencyclidine Scrn NEGATIVE Amphetamines Screen NEGATIVE U Methamphetamines Scrn NEGATIVE U Benzodiazepines Scrn NEGATIVE U Cocaine Metab Screen NEGATIVE U Cannabinoids Screen NEGATIVE 11/01/17 20:15 WBC RBC Hgb Hct MCV MCH MCHC Differential RDW Plt Count MPV Neutrophils % Lymphocytes % Monocytes % Eosinophils % Basophils % PT INR Sodium Potassium Chloride Carbon Dioxide Anion Gap BUN Creatinine Est GFR ( Amer) Est GFR (Non-Af Amer) BUN/Creatinine Ratio Glucose Calcium Total Bilirubin AST ALT Alkaline Phosphatase Creatine Kinase Troponin I B-Natriuretic Peptide Total Protein Albumin Globulin Albumin/Globulin Ratio Triglycerides Cholesterol LDL Cholesterol Direct HDL Cholesterol Urine Source CLEAN C Urine Color YELLOW Urine Clarity CLEAR Urine pH 6.0 Ur Specific [place] 1.025 Urine Protein TRACE Urine Glucose (UA) 500 H Urine Ketones NEGATIVE Urine Blood NEGATIVE Urine Nitrate NEGATIVE Urine Bilirubin NEGATIVE Urine Urobilinogen 0.2 Ur Leukocyte Esterase NEGATIVE Urine RBC 0-2 H Urine WBC 0-2 Ur Epithelial Cells RARE Urine Bacteria NONE SEEN Urine Mucus FEW Urine Yeast FEW H Urine Opiates Screen Urine Methadone Screen Ur Barbiturates Screen Ur Tricyclics Screen Ur Phencyclidine Scrn Amphetamines Screen U Methamphetamines Scrn U Benzodiazepines Scrn U Cocaine Metab Screen U Cannabinoids Screen <Renetta Correa - Last Filed: 11/01/17 21:17> ED Assessment - Assessment General Assessment: I took over this patient's care at 7:10 p.m. Documentation of the patient's care since arrival to the emergency room needs to be entered into the computer by Dr. Alejandra whom I relieved. Assessment/Comments:: patient has been walking around the ER asking for pain medication. He has not been falling at all. He doesn't look unstable at all with respect to walking. Dr. Alejandra told him that he was going to be admitted so he then called his brother (with whom he normally lives) that he could go down and travel to [place]. I called Dr. Issa and presented the case to him. Both of us agree that this is more of a social admit and that we don't see any medical reason to admit this patient whose drug screen is positive for opiates even though he states that he ran out of his Disney 2 days ago and we never gave him any Disney here. I will write the patient for a few Disney tablets to get him to his surgery date that he claims is in a few days. 21:14 pm. <Renetta Correa - Last Filed: 11/01/17 21:17> ED Septic Shock - . Is Septic Shock (SBP<90, OR Lactate>4 mmol\\L) present?: No - <6hrs of presentation: Vital Signs: Vital Signs - 8 hr 11/01/17 13:05 Temp 97.7 F HR 106 RR 19 BP 156/93 O2 Sat % 99 <Abel Alejandra - Last Filed: 11/01/17 19:08> - . Is Septic Shock (SBP<90, OR Lactate>4 mmol\\L) present?: No - <6hrs of presentation: Vital Signs: Vital Signs - 8 hr 11/01/17 11/01/17 11/01/17 13:05 13:09 14:40 Temp 97.7 F 97.7 F 98.3 F HR 106 106 96 RR 19 19 20 BP 156/93 156/93 O2 Sat % 99 99 98 <Renetta Correa - Last Filed: 11/01/17 21:17> ED Reassessment (Disposition) - Reassessment Reassessment Condition:: Improved - Diagnosis Diagnosis:: Syncope; Falls; Right Shoulder Pain; Right Shoulder Sprains; TIA; Cardiac Arrythmias; Hyperglycemia; CHF; DM <Abel Alejandra - Last Filed: 11/01/17 19:08> - Reassessment Reassessment Condition:: Improved - Diagnosis Diagnosis:: Opiate Usage. Drug Seeking Behavior No instability with respect to walking. Normal neurological exam. No medical or neurological reason to admit this patient to the hospital per Dr. Issa and Dr. Correa. 21:15 p.m. <Renetta Correa - Last Filed: 11/01/17 21:17>
[2017-11-01 13:30] LABS: % BASOPHILS 0.5 % (0.0-2.0); % EOSINOPHILS 2.7 % (0.0-5.0); % MONOCYTES 8.9 % (2.0-10.0); % NEUTROPHILS 68.9 % (40.0-80.0); EOSINOPHILE ABSOLUTE 0.2 Th/cmm (0.1-0.4); HEMATOCRIT 36.1 % (41.0-60); HEMOGLOBIN 12.3 gm/dL (12-16); LYMPHOCYTE ABSOLUTE 1.5 Th/cmm (1.5-3.0); MEAN CELL VOLUME 88.9 fl (80-99); MEAN CORPUSCULAR HEMOGLOBIN 30.4 pg (26.0-30.0); MEAN CORPUSCULAR HGB CONC 34.1 pg (28.0-36.0); MEAN PLATELET VOLUME 7.7 fl; MONOCYTE ABSOLUTE 0.7 Th/cmm (0.3-1.0); NEUTROPHILE ABSOLUTE 5.3 Th/cmm (1.8-8.0); PLATELET COUNT 388 Th/cmm (150-400); RED BLOOD COUNT 4.06 Mil/cmm (4.30-5.70); RED CELL DISTRIBUTION WIDTH 15.3 % (11.5-20.0); WHITE BLOOD COUNT 7.7 Th/cmm (4.8-10.8)
[2017-11-01 13:43] LABS: INR 1.02 (0.5-1.4); PROTHROMBIN TIME (TEST) 10.6 SECONDS (9.5-11.5)
[2017-11-01 13:52] LABS: ALB/GLOB RATIO 1.8 (1.0-1.8); ALKALINE PHOSPHATASE 47 U/L (34-104); ANION GAP 11.2 (7.0-16.0); BILIRUBIN,TOTAL 0.6 mg/dL (0.3-1.0); BUN - UREA NITROGEN 18 mg/dL (7-25); CARBON DIOXIDE 20.6 mEq/L (21.0-31.0); CHLORIDE 108 mEq/L (98-107); CHOLESTEROL 140 mg/dL (<200); CREATININE KINASE 54 U/L (30-223); GFR AFRICAN-AMERICAN > 60.0 ml/min (>90); GFR NON AFRICAN-AMERICAN > 60.0 ml/min; GLUCOSE 177 mg/dL (70-105); HDL -HIGH DENSITY LIPOPROTEIN 40 mg/dL (23-92); POTASSIUM SERUM 3.8 mEq/L (3.5-5.1); SGOT 6 U/L (13-39); SGPT/ALT < 3 U/L (7-52); SODIUM SERUM 136 mEq/L (136-145); TOTAL PROTEIN,SERUM 6.2 gm/dL (6.0-8.3); TRIGLYCERIDES 124 mg/dL (<150)
--- NOTE | 2017-11-01 14:39 | Diagnostic Imaging Report ---
CT scan of the brain without intravenous contrast HISTORY: Syncope Total DLP equals 613 CTDI equals 33.5 Axial sections were obtained from the base of skull the vertex. There is a normal ventricular system size for age. There is enlargement of cerebral sulci and subarachnoid cisterns reflecting generalized cerebral atrophy. Subcentimeter hypodense foci noted in the left basal ganglia region suggesting changes of old lacunar infarcts. No acute abnormalities. No acute intracerebral hemorrhage. No mass effect or shift of midline structures. No extra-axial masses or abnormal fluid collections. IMPRESSION: 1. No acute abnormalities 2. Subcentimeter hypodense focus within the left basal ganglia region that may be associated with an old lacunar infarct 3. Cerebral atrophy
--- NOTE | 2017-11-01 14:40 | Diagnostic Imaging Report ---
Chest x-ray (single view, AP) HISTORY: Pain The heart size appears somewhat generous. No acute pulmonary parenchymal processes. Small calcified density noted in the left upper lobe unchanged from May 18, 2017 most likely related to old granulomatous disease. No hilar or mediastinal abnormalities. IMPRESSION: 1. No acute abnormalities 2. Somewhat generous heart size
--- NOTE | 2017-11-01 14:42 | Diagnostic Imaging Report ---
Right shoulder (3 views) HISTORY: Pain, trauma No definite acute bony abnormalities. No definite fractures. No dislocation. Degenerative changes are noted with irregularity along the lateral aspect of the humeral head. Narrowing hypertrophic bone formation seen about the acromioclavicular joint. A small calcification is noted within the soft tissues adjacent to the lateral aspect of the humeral head. Findings are consistent with changes of calcific tendinitis. IMPRESSION: 1. No acute abnormalities 2. Degenerative changes 3. Findings consistent with calcific tendinitis. In the presence of recent trauma and persistent symptoms, a repeat radiograph in 5-7 days may be helpful for detection of a subtle or occult fracture.
--- NOTE | 2017-11-01 14:44 | Diagnostic Imaging Report ---
Right clavicle (2 views) HISTORY: Pain No acute bony amenities. No fractures. Hypertrophic bony changes noted about the acromioclavicular joint. Irregularity and mild deformity noted along the lateral margin of the humeral head. A subcentimeter calcification is seen within the soft tissues adjacent to the lateral aspect of the humeral head. Findings consistent with calcific tendinitis. Incidentally noted are degenerative changes within the cervical spine. IMPRESSION: 1. No acute abnormalities 2. Degenerative changes as described above 3. Findings consistent with calcific tendinitis
[2017-11-01] MEDS ORDERED: Morphine Sulfate 2 mg/mL 1mL Syr IV STA (14:45)
[2017-11-01] MEDS ORDERED: Morphine Sulfate 2 mg/mL 1mL Syr ONE (14:49)
[2017-11-01 20:23] LABS: URINE MICROSCOPIC INDICATED? YES; URINE SOURCE CLEAN C
[2017-11-01 20:32] LABS: URINE BILIRUBIN NEGATIVE (NEGATIVE); URINE BLOOD NEGATIVE (NEGATIVE); URINE GLUCOSE (UA) 500 mg/dL (NEGATIVE); URINE KETONE NEGATIVE (NEGATIVE); URINE LEUKOCYTE ESTERASE NEGATIVE (NEGATIVE); URINE NITRATE NEGATIVE (NEGATIVE); URINE PROTEIN TRACE mg/dL (NEGATIVE); URINE UROBILINOGEN 0.2 E.U./dL (0.2 - 1.0)
[2017-11-01 20:41] LABS: URINE CLARITY CLEAR (CLEAR); URINE COLOR YELLOW; URINE RBC 0-2 /hpf (0-5); URINE WBC 0-2 /hpf (0-5)
[2017-11-01 20:42] LABS: URINE BACTERIA NONE SEEN /hpf (NONE SEEN); URINE EPITHELIAL CELLS RARE /lpf (FEW); URINE YEAST FEW /hpf (NONE SEEN)
[2017-11-01 20:43] LABS: AMPHETAMINE URINE NEGATIVE (NEGATIVE); BARBITURATES URINE NEGATIVE (NEGATIVE); BENZODIAZEPINES QUAL URINE NEGATIVE (NEGATIVE); CANNABINOID THC NEGATIVE (NEGATIVE); COCAINE METABOLITE QUAL URINE NEGATIVE (NEGATIVE); METHADONE URINE NEGATIVE (NEGATIVE); METHAMPHETAMINES QUAL URINE NEGATIVE (NEGATIVE); OPIATES (MORPHINE) QUAL. URINE POSITIVE (NEGATIVE); PHENCYCLIDINE (PCP) URINE NEGATIVE (NEGATIVE); TRICYCLICS (TCA) QUAL. URINE NEGATIVE (NEGATIVE)
== END 2017-11-01 22:00 | disposition home or self-care (01) ==
LOC: ER 12:52
DX: R55 Syncope and collapse (principal); S43.401A Unspecified sprain of right shoulder joint, initial encounter; I11.0 Hypertensive heart disease with heart failure; I50.9 Heart failure, unspecified; G45.9 Transient cerebral ischemic attack, unspecified; I49.9 Cardiac arrhythmia, unspecified; E11.65 Type 2 diabetes mellitus with hyperglycemia; E78.5 Hyperlipidemia, unspecified; W19.XXXA Unspecified fall, initial encounter; Y93.89 Activity, other specified; Y92.89 Other specified places as the place of occurrence of the external cause; Y99.8 Other external cause status
CPT/HCPCS: 99285; 96374; 93005; 71045; 73000; 73030; 70450; 84484; 83880; 36415; 80307; 85025; 85610; 81001; 82550; 80053; 80061; J2270; J1885

== ENCOUNTER 2017-11-02 12:31 | Emergency (ER) | payer MEDICAID | END 2017-11-02 12:47 | disposition left against medical advice (07) | LOC: ER 12:31 | DX: M25.519 Pain in unspecified shoulder (principal) ==

== ENCOUNTER → 2017-11-16 19:41 | Emergency (ER) | payer MEDICAID ==
--- NOTE | 2017-11-16 20:46 | ED Physician Chart ---
ED Chief Complaint/HPI - Patient Information Allergies:: Allergies Allergy/AdvReac Type Severity Reaction Status Date / Time No Known Allergies Allergy Verified 06/05/17 00:27 Family Medical History - Family Member Mother History Unknown: Yes Ethnicity: Non- Living Status: Hx Family Cancer: Yes (BREAST) Hx Family Coronary Artery Disease: No Hx Family Congestive Heart Failure: No Hx Family Hypertension: No Hx Family Stroke: No Hx Family Seizures: No Hx Family Dementia: No Hx Family HIV: No Hx Family Hepatitis: No Father History Unknown: Yes Ethnicity: Non- Living Status: Hx Family Cancer: No Hx Family Coronary Artery Disease: No Hx Family Congestive Heart Failure: No Hx Family Hypertension: Yes Hx Family Stroke: No Hx Family Diabetes: Yes Hx Family Seizures: No Hx Family Dementia: No Hx Family AIDS: No Hx Family HIV: No Hx Family COPD: No Hx Family Hepatitis: No Hx Family Psychiatric Problems: No Hx Family Tuberculosis: No ED Septic Shock - . Is Septic Shock (SBP<90, OR Lactate>4 mmol\L) present?: No ED Reassessment (Disposition) - Patient Disposition Discharge/Transfer:: Elope/AWOL (before being seen.)
== END | disposition left against medical advice (07) ==
LOC: ER 19:41
DX: R10.9 Unspecified abdominal pain (principal)